=== PATIENT | female | born 1940 | race Caucasian/White ===

== ENCOUNTER → 2017-11-30 | Outpatient (CLI) | payer MEDICARE, BC ==
--- NOTE | 2017-11-30 20:27 | ECHOF ---
Referral Reason:R01.1 [facility] MEASUREMENTS -------- HEIGHT: 157.5 cm WEIGHT: 71.7 kg BP: 164/70 RVIDd: 2.6 cm (< 3.3) IVSd: 0.9 cm (0.6 - 1.1) LVIDd: 3.7 cm (3.9 - 5.3) LVPWd: 0.9 cm (0.6 - 1.1) IVSs: 1.3 cm LVIDs: 2.8 cm LVPWs: 1.4 cm LAESV Index (A-L): 27.60 ml/m Ao Diam: 3.5 cm (2.0 - 3.7) AV Cusp: 1.6 cm (1.5 - 2.6) LA Diam: 2.8 cm (2.7 - 3.8) MV EXCURSION: 13.970 mm (> 18.000) MV EF SLOPE: 99 mm/s (70 - 150) EPSS: 0.9 cm MV E Nino: 0.63 m/s MV DecT: 263 ms MV A Nino: 0.84 m/s MV E/A Ratio: 0.76 RAP: 5.00 mmHg RVSP: 8.72 mmHg FINDINGS -------- Sinus rhythm. This was a technically adequate study. The left ventricular size is normal. Left ventricular wall thickness is normal. Overall left vent ricular systolic function is normal with, an EF between 55 - 60 %. The right ventricle is normal in size and function. Normal LA size by volume 22+/-6 ml/m2. The right atrium is normal in size. There is mild aortic valve sclerosis. There is mild aortic regurgitation. Mild mitral annular calcification present. Mild mitral regurgitation is present. Mild tricuspid regurgitation present. Right ventricular systolic pressure is normal at < 35 mmHg. There is no evidence of pulmonary hypertension. Trace/mild (physiologic) pulmonic regurgitation. The aortic root size is normal. Normal inferior vena cava with normal inspiratory collapse consistent with estimated right atrial pre ssure of 5 mmHg. There is no pericardial effusion. CONCLUSIONS -------- 1. Sinus rhythm. 2. This was a technically adequate study. 3. The left ventricular size is normal. 4. Left ventricular wall thickness is normal. 5. Overall left ventricular systolic function is normal with, an EF between 55 - 60 %. 6. Normal LA size by volume 22+/-6 ml/m2. 7. There is mild aortic valve sclerosis. 8. There is mild aortic regurgitation. 9. Mild mitral annular calcification present. 10. Mild mitral regurgitation is present. 11. Mild tricuspid regurgitation present. 12. Right ventricular systolic pressure is normal at < 35 mmHg. 13. Trace/mild (physiologic) pulmonic regurgitation. 14. The aortic root size is normal. 15. There is no pericardial effusion. MANAGER RESOURCE: Speedy Leon RDCS
== END | disposition home or self-care (01) ==
LOC: RADECHMAIN 12:03
PROVIDERS: ATTEND Internal Medicine
DX: R01.1 Cardiac murmur, unspecified (principal)
CPT/HCPCS: 93306

== ENCOUNTER → 2019-09-03 | Outpatient (CLI) | payer MEDICARE, BC ==
--- NOTE | 2019-09-03 12:11 | XR ---
EXAM TYPE: LUMBAR SPINE X RAY SERIES COMPARISON: NONE HISTORY: Pain and numbness TECHNIQUE: 4 views are submitted. FINDINGS: Alignment is anatomic. The pedicles are intact. The transverse processes are intact. There is grad e 2 spondylolisthesis of L4 on L5. There is moderate to severe degenerative disc disease and facet ar thropathy at L4-5 and L5-S1. Diffuse osteopenia noted. Facet arthropathy L3-4 with mild degenerative disc disease at the remaining levels. Vascular calcific ations are noted in a chronic appearing superior endplate compression fracture of T12. Early for prev ious hernia repair surgery. IMPRESSION: 1. Multilevel moderate to severe degenerative disc disease with grade 2 anterolisthesis L5 on S1 like ly resulting in foraminal encroachment and canal stenosis. Recommend MRI. 2. Diffuse osteopenia with a chronic appearing compression fracture T12.
== END | disposition home or self-care (01) ==
LOC: RADXRYALE 11:05
PROVIDERS: ATTEND Internal Medicine
DX: M43.17 Spondylolisthesis, lumbosacral region (principal); M51.36 Other intervertebral disc degeneration, lumbar region; M85.88 Other specified disorders of bone density and structure, other site; S22.088A Other fracture of T11-T12 vertebra, initial encounter for closed fracture
CPT/HCPCS: 72110

== ENCOUNTER 2022-03-17 06:11 | Day surgery (SDC) | payer BC, MEDICARE ==
[2022-03-16 12:39] VITALS: BMI 25.6
[~2022-03-17 06:11] MED LIST: ALPRAZolam 0.25 MG TAB PO PRN; ALPRAZolam 0.5 MG TAB PO PRN; NITROGLYCERIN SL TABS 0.4 MG TAB SUBLINGUAL PRN; SODIUM CHLORIDE 0.9% 1,000 ML in EMPTY BAG 1 BAG IV ONE
[2022-03-17] MEDS ORDERED: SODIUM CHLORIDE 0.9% 1,000 ML IV ONE (06:41)
[2022-03-17] MEDS ORDERED: HEPARIN SODIUM,PORCINE 10,000 UNIT in SODIUM CHLORIDE 0.9% 1,000 ML IRRIGATION PRN (07:00)
[2022-03-17] MEDS ORDERED: ATORVASTATIN 80 MG TAB PO ONE (07:00)
[2022-03-17] MEDS ORDERED: HEPARIN SODIUM,PORCINE 2,500 UNIT in SODIUM CHLORIDE 0.9% 250 ML IRRIGATION PRN (07:00)
[2022-03-17] MEDS ORDERED: ASPIRIN 325 MG TAB PO ONE (07:00)
[2022-03-17 07:07] VITALS: RESP 16; TEMP 97.9
[2022-03-17] MEDS ORDERED: VERAPAMIL 2.5 MG/ML 2 ML AMP ONE (07:21)
[2022-03-17] MEDS ORDERED: fentaNYL (PF) 50 MCG/ML 2 ML AMP ONE (07:22)
[2022-03-17] MEDS ORDERED: fentaNYL (PF) 50 MCG/ML 2 ML AMP IV ONE (07:55)
[2022-03-17] MEDS ORDERED: LIDOCAINE 1% INJ 10MG/ML (5 ML VIAL-PF) IV ONE (08:03)
[2022-03-17] MEDS ORDERED: VERAPAMIL SYRINGE (5 MG/10 ML) INTRAARTER ONE (08:03)
[2022-03-17] MEDS ORDERED: HEPARIN SODIUM 1,000 UN/ML (10ML VL) IV ONE (08:07)
[2022-03-17] MEDS ORDERED: IOPAMIDOL-370 125ML BTL INJ ONE (08:13)
[2022-03-17] MEDS ORDERED: RX INFO: IV CONTRAST WAS GIVEN 1 EACH MISC MISCELLANE PRN (08:21)
--- NOTE | 2022-03-17 08:27 | P.CARDCATH ---
Date of Procedure: 03/17/22 Description of Procedure: Cardiac Catheterization: The patient is an 81-year-old female with a known history of hypertension and hyperlipidemia who has been complaining of chest discomfort and had an abnormal MPI. Recommendations were made regarding cardiac catheterization, the risks and the complications were discussed with the patient who is in full understanding and agreement. Procedure Description: Patient was brought to geoscience laboratory technician in fasting semi-sedated state after receiving Fentanyl and Benadryl achieiving moderate conscious sedated state. Using Xylocaine Anesthesia and Seldinger technique, a 6-[place] sheath was introduced in the right radial artery . Subsequently, selective coronary angiography was performed using a 5-[place] 3.5 bend right Gia and 4 bend left Gia catheter. Multiple views of the coronary artery including hemiaxial views were obtained. The right Gia catheter was used to cross the aortic valve and LVEDP was calculated. Following that, catheter and sheath were removed. Hemostasis was obtained with deployment of TR band . There was no immediate complication. Patient was returned to room in stable condition. Of note, the patient received a total of 3500 units of intravenous heparin as well as intra-arterial verapamil. Findings: Mild calcification was noted in the LAD Left main: This is a large size vessel, bifurcating into LAD and left circumflex, left main has no high-grade stenosis LAD: This is a large size vessel, reaching to the apex with a wraparound apex segment, the LAD has no evidence of significant obstructive disease Left circumflex: This is a large nondominant vessel giving rise to a large obtuse marginal branch, left circumflex and its branches have no obstructive disease RCA: This is a large dominant vessel bifurcating into PDA and PLV the right coronary artery and its branches have no evidence of high-grade stenosis Left Ventriculogram: Not performed Hemodynamics: There was no gradient across the aortic valve , LVEDP was 10-12 mmHg Conclusion: 1. Normal coronary arteries 2. Mild calcification in the LAD 3. Normal LVEDP 4. Right dominance Recommendations: I have recommended continued medical therapy with aggressive coronary risks modifications. I see no contraindication to her upcoming surgery with Dr. Rios. The findings and the recommendations were discussed with the patient and the family and they were in full understanding and agreement. Duration of sedation is 16 minutes.
[2022-03-17] MEDS ORDERED: SODIUM CHLORIDE 0.9% 1,000 ML IV SCH (08:30)
[2022-03-17] MEDS ORDERED: DULoxetine HCL 30 MG CAPSULE.DR PO SCH (09:00)
[2022-03-17] MEDS ORDERED: allopurinoL 100 MG TAB PO SCH (09:00)
[2022-03-17] MEDS ORDERED: atenoloL 25 MG TAB PO SCH (09:00)
[2022-03-17] MEDS ORDERED: amLODIPine 10 MG TAB PO SCH (09:00)
[2022-03-17 11:47] VITALS: PULSE 56
[2022-03-17 12:22] VITALS: BP 142/78
[2022-03-18] MEDS ORDERED: ASPIRIN 325 MG TAB PO SCH (09:00)
[2022-03-18] MEDS ORDERED: ATORVASTATIN 40 MG TAB PO SCH (21:00)
== END 2022-03-17 12:30 | disposition home or self-care (01) ==
LOC: CATHCVL 06:11
PROVIDERS: ATTEND Internal Medicine Interventional Cardiology
DX: R94.39 Abnormal result of other cardiovascular function study (principal); R07.89 Other chest pain; I10 Essential (primary) hypertension; E78.2 Mixed hyperlipidemia; I25.83 Coronary atherosclerosis due to lipid rich plaque
CPT/HCPCS: 93458; 87635; C1769 ×2; C1894; J2001; J3010; J1644; Q9967

== ENCOUNTER 2023-10-14 12:35 | Inpatient (IN) | payer MEDICARE ==
--- NOTE | 2023-10-14 13:52 | ED ---
Recheck HPI - General Chief Complaint: Fall Stated Complaint: Femar Fracture - Transfer Time Seen by Provider: 10/14/23 12:38 Source: patient, EMS, RN notes reviewed, old records reviewed Mode of arrival: EMS Limitations: no limitations - History of Present Illness Initial Comments: This is an 83-year-old female here for evaluation accepted in transfer for a fall. Fall with a hip fracture patient does have a right hip fracture after fall. Patient has significant pain still in the right hip MD Complaint: medication refill request, other (Patient having severe right hip pain after fall with fracture) -: hour(s) Returns Today for: persistent/worsening pain related to initial visit Symptoms Since Prior Visit: worsening pain Associated Symptoms: none Treatments Prior to Arrival: Given Pain Meds on - Related Data Home Medications Medication Instructions Recorded Confirmed atenoloL [Tenormin] 25 mg PO BID 07/03/15 10/14/23 Rosuvastatin [Crestor] 20 mg PO HS 03/16/22 10/14/23 Ergocalciferol (Vitamin D2) 1,250 mcg PO LEZAMA 10/14/23 10/14/23 [Drisdol (50,000 Iu)] Ferrous Sulfate [Iron (65 MG 325 mg PO DAILY 10/14/23 10/14/23 Elemental)] Mv-Mn/Om3/Dha/Epa/Fish/Lut/Phil 1 cap PO DAILY 10/14/23 10/14/23 [Ocuvite Adult 50 Plus Softgel] Previous Rx's Medication Instructions Recorded Apixaban [Eliquis] 2.5 mg PO BID 30 Days #60 tab 10/15/23 HYDROcodone/APAP 5-325MG [[place] 1 - 2 tab PO Q6HR PRN #32 tab 10/15/23 5-325] Sennosides [Senokot] 2 tab PO DAILY PRN #60 tablet 10/15/23 Allergies Allergy/AdvReac Type Severity Reaction Status Date / Time No Known Allergies Allergy Verified 10/14/23 13:20 Review of Systems ROS Statement: Those systems with pertinent positive or pertinent negative responses have been documented in the HPI. ROS Other: All systems not noted in ROS Statement are negative. Past Medical History Past Medical History: Cancer, CVA/TIA, Hyperlipidemia, Hypertension, Osteoarthritis (OA) Additional Past Medical History / Comment(s): hx TIA - some memory loss, hx colon cancer, "heart valve leakage", has episode of waking up with balance problem, did not know where she was and was SOB with chest discomfort, hx gout, History of Any Multi-Drug Resistant Organisms: None Reported Past Surgical History: Bowel Resection, Hernia Repair, Joint Replacement Additional Past Surgical History / Comment(s): lt knee replacement, Past Anesthesia/Blood Transfusion Reactions: No Reported Reaction Past Psychological History: No Psychological Hx Reported Smoking Status: Never smoker - Past Family History Mother Family Medical History: Cancer Brother(s) Family Medical History: Cancer Additional Family Medical History / Comment(s): stomach cancer General Exam Limitations: no limitations General appearance: alert, in no apparent distress Head exam: Present: atraumatic, normocephalic, normal inspection Eye exam: Present: normal appearance, PERRL, EOMI. Absent: scleral icterus, conjunctival injection, periorbital swelling ENT exam: Present: normal exam, mucous membranes moist Neck exam: Present: normal inspection. Absent: tenderness, meningismus, lymphadenopathy Respiratory exam: Present: normal lung sounds bilaterally. Absent: respiratory distress, wheezes, rales, rhonchi, stridor Cardiovascular Exam: Present: regular rate, normal rhythm, normal heart sounds. Absent: systolic murmur, diastolic murmur, rubs, gallop, clicks GI/Abdominal exam: Present: soft, normal bowel sounds. Absent: distended, tend erness, guarding, rebound, rigid Extremities exam: Present: normal inspection, full ROM, normal capillary refill. Absent: tenderness, pedal edema, joint swelling, calf tenderness Back exam: Present: normal inspection Neurological exam: Present: alert, oriented X3, CN II-XII intact Psychiatric exam: Present: normal affect, normal mood Skin exam: Present: warm, dry, intact, normal color. Absent: rash Course Vital Signs 10/14/23 10/14/23 10/14/23 12:37 12:41 13:41 Temperature 98 F 98 F Pulse Rate 77 80 96 Respiratory 17 17 18 Rate Blood Pressure 156/78 156/78 192/105 O2 Sat by Pulse 96 97 95 Oximetry 10/14/23 17:00 Temperature Pulse Rate 96 Respiratory 18 Rate Blood Pressure 167/83 O2 Sat by Pulse 98 Oximetry - Reevaluation(s) Reevaluation #1: 03/29/24 15:07 Records reviewed Reevaluation #2: 10/14/23 15:07 Patient pain is controlled Reevaluation #3: 10/14/23 15:07 Patient informed of results and questions answered Reevaluation #4: Was pt. sent in by a medical professional or institution (, [facility], [employer]AT [employer]ISHER, urgent care, hospital, or prison...) When possible be specific @ -no Did you speak to anyone other than the patient for history (EMS, parent, family, police, friend...)? What history was obtained from this source @ -no Did you review nursing and triage notes (agree or disagree)? Why? @ -agree Are old charts reviewed (outside hosp., previous admission, EMS record, old EKG, old radiological studies, urgent care reports/EKG's, prison records)? Report findings @ -yes Differential Diagnosis (chest pain, altered mental status, abdominal pain women, abdominal pain men, vaginal bleeding, weakness, fever, dyspnea, syncope, h eadache, dizziness, GI bleed, back pain, seizure, CVA, palpatations, mental health, musculoskeletal)? @ -prior EKG interpreted by me (3pts min.). @ -no X-rays interpreted by me (1pt min.). @ -yes negative for acute disease CT interpreted by me (1pt min.). @ -no U/S interpreted by me (1pt. min.). @ -no What testing was considered but not performed or refused? (CT, X-rays, U/S, labs)? Why? @ -none What meds were considered but not given or refused? Why? @ -none Did you discuss the management of the patient with other professionals (professionals i.e. , [facility], FLAT FINISHER, lab, RT, psych nurse, psychiatric social worker, armed security professional, teacher, global chief creative officer, nurse case manager)? Give summary @ -no Was smoking cessation discussed for >3mins.? @ -no Was critical care preformed (if so, how long)? @ -no Were there social determinants of health that impacted care today? How? (Homelessness, low income, unemployed, alcoholism, drug addiction, transportation, low edu. Level, literacy, decrease access to med. care, usp, rehab)? @ -none Was there de-escalation of care discussed even if they declined (Discuss DNR or withdrawal of care, Hospice)? DNR status @ -no What co-morbidities impacted this encounter? (DM, HTN, Smoking, COPD, CAD, Cancer, CVA, ARF, Chemo, Hep., AIDS, mental health diagnosis, sleep apnea, m orbid obesity)? @ -none Was patient admitted / discharged? Hospital course, mention meds given and route, prescriptions, significant lab abnormalities, going to OR and other pertinent info. @ - 83 female to the ER for evaluation status post fall does have prior hip fracture and today presents with right hip fracture right IT hip fracture. Patient will be admitted for surgical evaluation and orthopedics Admitted Undiagnosed new problem with uncertain prognosis? @ -no Drug Therapy requiring intensive monitoring for toxicity (Heparin, Nitro, Insulin, Cardizem)? @ -no Were any procedures done? @ -no Diagnosis/symptom? @ -Fall with hip fracture Acute, or Chronic, or Acute on Chronic? @ -Acute Uncomplicated (without systemic symptoms) or Complicated (systemic symptoms)? @ -Complicated Side effects of treatment? @ -no Exacerbation, Progression, or Severe Exacerbation? @ -exacerbation Poses a threat to life or bodily function? How? (Chest pain, [place], [place], pneumonia, PE, COPD, DKA, ARF, appy, cholecystitis, CVA, Diverticulitis, Homicidal, Suicidal, threat to staff... and all critical care pts) @ -yes significant fall and hip fracture - Consultations Consultation #1: With orthopedics prior to surgery Dr. Hanna who accepts admission Medical Decision Making - Medical Decision Making 83 female to the ER for evaluation status post fall does have prior hip fracture and today presents with right hip fracture right IT hip fracture. Patient will be admitted for surgical evaluation and orthopedics - Lab Data Result diagrams: 10/18/23 06:36 10/18/23 09:09 - Radiology Data Radiology results: report reviewed (X-ray right hip is positive for IT fracture), image reviewed Disposition Clinical Impression: Fall, Closed right hip fracture Disposition: ADMITTED IP TO THIS [facility] Condition: Fair Is patient prescribed a controlled substance at d/c from ED?: No Time of Disposition: 15:00
[2023-10-14] MEDS: SODIUM CHLORIDE 0.9% 1,000 ML IV STA (14:20)
[2023-10-14] MEDS: MORPHINE SULFATE 4 MG/ML SYRINGE IV STA (14:23)
--- NOTE | 2023-10-14 14:35 | XR ---
EXAMINATION TYPE: XR Hip Complete RT DATE OF EXAM: 10/14/2023 COMPARISON: NONE HISTORY: Pain TECHNIQUE: 2 views submitted FINDINGS: There is distortion of the femoral neck compatible with acute fracture. Vascular calcifications and d iffuse osteopenia. SI joint patent. Cross table lateral view demonstrates hip replacement surgery on the left. Vascular calcifications noted. Marker suggestive of previous hernia repair surgery. IMPRESSION: 1. Angulation deformity of the proximal right femur compatible with acute fracture. Most likely on th e basis of displaced intertrochanteric fracture.
[2023-10-14] MEDS ORDERED: NALOXONE 0.4 MG/ML 1 ML VIAL IV PRN (15:04)
[2023-10-14] MEDS ORDERED: ONDANSETRON 4 MG/2 ML VIAL IVP PRN (15:04)
[2023-10-14] MEDS: SODIUM CHLORIDE 0.9% 1,000 ML IV SCH (15:45)
[2023-10-14] MEDS: HYDROmorphone 1 MG/ML 1 ML SYRINGE IVP STA (15:45)
[2023-10-14 16:24] LABS: Basophils % (A) 0 %; Eosinophils % (A) 0 %; HCT 34.7 % (34.0-46.0); HGB 11.2 gm/dL (11.4-16.0); Lymphocytes # (A) 0.3 k/uL (1.0-4.8); Lymphocytes % (A) 3 %; MCH 28.1 pg (25.0-35.0); MCHC 32.3 g/dL (31.0-37.0); MCV 86.9 fL (80.0-100.0); Mean Platelet Volume 8.8; Monocytes # (A) 0.4 k/uL (0-1.0); Monocytes % (A) 4 %; Neutrophils # (A) 8.6 k/uL (1.3-7.7); Neutrophils % (A) 92 %; Platelet Count 203 k/uL (150-450); RBC 3.99 m/uL (3.80-5.40); RDW 14.2 % (11.5-15.5); WBC 9.4 k/uL (3.8-10.6)
[2023-10-14 16:35] LABS: INR 0.9 (<1.2); Partial Thromboplastin Time 24.3 sec (22.0-30.0); Prothrombin Time 10.1 sec (10.0-12.5)
[2023-10-14 16:36] LABS: ALT 37 U/L (4-34); AST 43 U/L (14-36); African American GFR (CKD) 62 (>60 ml/min/1.73 sqM); Albumin 3.4 g/dL (3.5-5.0); Alkaline Phosphatase 92 U/L (38-126); Anion Gap 9 mmol/L; Blood Urea Nitrogen 28 mg/dL (7-17); Calcium 8.6 mg/dL (8.4-10.2); Carbon Dioxide 23 mmol/L (22-30); Chloride 108 mmol/L (98-107); Glucose 112 mg/dL (74-99); Non-African American GFR(CKD) 54 (>60 ml/min/1.73 sqM); Potassium 4.2 mmol/L (3.5-5.1); Sodium 140 mmol/L (137-145); Total Bilirubin 1.5 mg/dL (0.2-1.3); Total Protein 6.4 g/dL (6.3-8.2)
[2023-10-14] MEDS: HYDROmorphone 1 MG/ML 1 ML SYRINGE IVP PRN (20:08)
[2023-10-14 22:35] LABS: Appearance,Urine Clear (Clear); Bilirubin,Urine Negative (Negative); Blood,Urine Negative (Negative); Color,Urine Colorless; Glucose,Urine (UA) Negative (Negative); Ketones,Urine Negative (Negative); Leukocyte Esterase,Urine Negative (Negative); Mucus,Urine Rare /hpf; Nitrite,Urine Negative (Negative); PH, Urine 5.5 (5.0-8.0); Protein,Urine 1+ (Negative); RBC,Urine <1 /hpf (0-5); Squamous Epithelial Cell,Urine <1 /hpf (0-4); Urobilinogen,Urine <2.0 mg/dL (<2.0); WBC,Urine 1 /hpf (0-5)
--- NOTE | 2023-10-14 23:58 | P.CONS ---
History of Present Illness - Reason for Consult Consult date: 10/14/23 - History of Present Illness Patient is a 83-year-old female with a PMH of hypertension and hyperlipidemia who was transferred from [facility] where the patient had presented earlier today after a fall at home. The history was obtained by the patient's son via phone (Akshat Garcia) as the patient was confused at the time of interview. He notes that the patient lives by herself and that they check in on her multiple times a day. They went in to her home as per usual this morning and found her on the ground, dressed to go to her appointment. The patient had reported to them that she was trying to reach for a lamp when she lost her balance and fell to the ground. The patient had severe pain at the right hip and was unable to bear weight. He reports that she otherwise is independent in most of her ADLs and has been doing well since her prior left-sided hip fracture in April 2023. She had not endorsed complaints of chest discomfort, shortness of breath, diaphoresis, or dizziness to her family members. At the time of interview, she was confused and stated that she fell but could not recall the circumstances and was not answering most questions appropriately. Right hip x-ray revealed proximal right femur angulation deformity with an acute fracture. Laboratory evaluation revealed a total bilirubin 1.5, AST 43, ALT 37, glucose 112, chloride 108, BUN 28, unremarkable UA. ED documentation reviewed and case discussed with ED provider. Review of systems: Pertinent positives and negatives as discussed in HPI, a complete review of systems was performed and all other systems are negative. Physical examination: Vital signs reviewed General: non toxic, no distress, appears at stated age, normal weight Derm: no unusual rashes/lesions, warm Head: atraumatic, normocephalic, symmetric Eyes: EOMI, no lid lag, anicteric sclera, pupils equal round reactive to light ENT: Nose and ears atraumatic Neck: No cervical lymphadenopathy, trachea midline, supple Mouth: no lip lesion, mucus membranes moist Cardiovascular: S1S2 reg, no murmur, positive dorsalis pedis pulse bilateral, no edema Lungs: CTA bilateral, no rhonchi, no rales, no accessory muscle use Abdominal: soft, nontender to palpation, no guarding Ext: muscle strength 5 out of 5 in all 4 extremities grossly except proximal right lower extremity due to pain, no gross muscle atrophy, no contractures, no right hip skin deformity noted Neuro: CN II-XI grossly intact, no gross focal neuro deficits Psych: Confused, oriented only to person, not oriented to time or place Assessment: Mechanical fall with right femoral fracture Chronic conditions: Hypothyroidism, hypertension Abnormal LFTs Imaging: Right hip x-ray revealed proximal right femur angulation deformity with an acute fracture. Data Review: Laboratory evaluation revealed a total bilirubin 1.5, AST 43, ALT 37, glucose 112, chloride 108, BUN 28, unremarkable UA. Plan: Preoperative evaluation Patient independent in most ADLs and ambulates without difficulty as per family. Limited chronic medical conditions. No reports of chest discomfort or shortness of breath. Patient is medium risk (in light of advanced age) and is currently optimized for orthopedic surgical procedure with no obvious modifiable risk factors noted. RCRI Score: 0 (3.9% 30-day risk of , VT, or cardiac arrest) Continue home medications Monitor LFTs Past Medical History Past Medical History: Cancer, CVA/TIA, Hyperlipidemia, Hypertension, Osteoarthritis (OA) Additional Past Medical History / Comment(s): hx TIA - some memory loss, hx colon cancer, "heart valve leakage", has episode of waking up with balance problem, did not know where she was and was SOB with chest discomfort, hx gout, History of Any Multi-Drug Resistant Organisms: None Reported Past Surgical History: Bowel Resection, Hernia Repair, Joint Replacement Additional Past Surgical History / Comment(s): lt knee replacement, lf hip fx 2022, Rt hip fx 2023 Past Anesthesia/Blood Transfusion Reactions: No Reported Reaction Past Psychological History: No Psychological Hx Reported Smoking Status: Never smoker Past Alcohol Use History: None Reported Past Drug Use History: None Reported - Past Family History Mother Family Medical History: Cancer Brother(s) Family Medical History: Cancer Additional Family Medical History / Comment(s): stomach cancer Medications and Allergies Home Medications Medication Instructions Recorded Confirmed Type RX: atenoloL [Tenormin] 25 mg PO BID 07/03/15 10/14/23 History RX: Rosuvastatin [Crestor] 20 mg PO HS 03/16/22 10/14/23 History RX: Aspirin 81 mg PO BID 30 Days #60 tab 04/25/23 10/14/23 Rx Ergocalciferol (Vitamin D2) 1,250 mcg PO LEZAMA 10/14/23 10/14/23 History [Drisdol (50,000 Iu)] Ferrous Sulfate [Feosol] 325 mg PO DAILY 10/14/23 10/14/23 History Mv-Mn/Om3/Dha/Epa/Fish/Lut/Phil 1 cap PO DAILY 10/14/23 10/14/23 History [Ocuvite Adult 50 Plus Softgel] Allergies Allergy/AdvReac Type Severity Reaction Status Date / Time No Known Allergies Allergy Verified 10/14/23 13:20 Physical Exam Vitals: Vital Signs Temp Pulse Pulse Resp BP BP Pulse Ox 10/14/23 19:37 99.2 F 82 16 169/83 94 L 10/14/23 17:00 96 18 167/83 98 10/14/23 13:41 96 18 192/105 95 10/14/23 12:41 98 F 80 17 156/78 97 10/14/23 12:37 98 F 77 17 156/78 96 Intake and Output 10/14/23 10/14/23 10/15/23 14:59 22:59 06:59 Output Total 900 Balance -900 Output: Urine 900 Other: Weight 63.503 kg 63.503 kg Results CBC & Chem 7: 10/14/23 16:16 10/14/23 16:16 Labs: Abnormal Lab Results - Last 24 Hours (Table) 10/14/23 10/14/23 10/14/23 Range/Units 16:16 16:16 22:19 Hgb 11.2 L (11.4-16.0) gm/dL Neutrophils # 8.6 H (1.3-7.7) k/uL Lymphocytes # 0.3 L (1.0-4.8) k/uL Chloride 108 H (98-107) mmol/L BUN 28 H (7-17) mg/dL Glucose 112 H (74-99) mg/dL Total Bilirubin 1.5 H (0.2-1.3) mg/dL AST 43 H (14-36) U/L ALT 37 H (4-34) U/L Albumin 3.4 L (3.5-5.0) g/dL Urine Protein 1+ H (Negative) Urine Mucus Rare H (None) /hpf
[2023-10-15] MEDS ORDERED: HYDROmorphone 0.5 MG/0.5 ML SYRINGE IVP PRN ×2 (07:27)
[2023-10-15] MEDS ORDERED: MAGNESIUM HYDROXIDE 2,400 MG/30 ML CUP PO PRN (07:27)
[2023-10-15] MEDS ORDERED: NALOXONE 0.4 MG/ML 1 ML VIAL IV PRN (07:27)
--- NOTE | 2023-10-15 07:27 | P.HPOR ---
History of Present Illness H&P Date: 10/15/23 This is an 83-year-old female who is admitted after a fall at home on 10/14/2023. Patient was seen and evaluated in the emergency room where x-rays revealed a right intertrochanteric femur fracture. Patient is seen and evaluated at bedside today and states that she was turning off the light in her bedroom when she lost her balance and fell. Patient states that she has a lot of pain in her right leg, but denies any other areas of pain. Patient states that she was admitted in April for a left hip fracture which was taken care of with a partial hip replacement. Patient states that she did well at [facility] bed and would hope to go there again after this surgery. Patient states that she did develop a blood clot after her last surgery and was on Eliquis for this. Patient states that she is no longer on blood thinners, but takes a baby aspirin daily. Patient's family is present at bedside today. Patient's past medical history significant for hyperlipidemia, hypertension, history of TIA and history of colon cancer. Patient denies any fever/chills, chest pain, shortness breath, abdominal pain, numbness, weakness or tingling. Review of Systems See HPI. Past Medical History Past Medical History: Cancer, CVA/TIA, Hyperlipidemia, Hypertension, Osteoarthritis (OA) Additional Past Medical History / Comment(s): hx TIA - some memory loss, hx colon cancer, "heart valve leakage", has episode of waking up with balance problem, did not know where she was and was SOB with chest discomfort, hx gout, History of Any Multi-Drug Resistant Organisms: None Reported Past Surgical History: Bowel Resection, Hernia Repair, Joint Replacement Additional Past Surgical History / Comment(s): lt knee replacement, lf hip fx 2022, Rt hip fx 2023 Past Anesthesia/Blood Transfusion Reactions: No Reported Reaction Past Psychological History: No Psychological Hx Reported Smoking Status: Never smoker Past Alcohol Use History: None Reported Past Drug Use History: None Reported - Past Family History Mother Family Medical History: Cancer Brother(s) Family Medical History: Cancer Additional Family Medical History / Comment(s): stomach cancer Medications and Allergies Home Medications Medication Instructions Recorded Confirmed Type atenoloL [Tenormin] 25 mg PO BID 07/03/15 10/14/23 History Rosuvastatin [Crestor] 20 mg PO HS 08/30/22 03/29/24 History Aspirin 81 mg PO BID 30 Days #60 tab 04/25/23 10/14/23 Rx Ergocalciferol (Vitamin D2) 1,250 mcg PO LEZAMA 10/14/23 10/14/23 History [Drisdol (50,000 Iu)] Ferrous Sulfate [Feosol] 325 mg PO DAILY 10/14/23 10/14/23 History Mv-Mn/Om3/Dha/Epa/Fish/Lut/Phil 1 cap PO DAILY 10/14/23 10/14/23 History [Ocuvite Adult 50 Plus Softgel] Allergies Allergy/AdvReac Type Severity Reaction Status Date / Time No Known Allergies Allergy Verified 10/14/23 13:20 Physical Examination On exam patient is resting comfortably in bed in no acute distress. Patient is alert and oriented 3. On exam of the right lower extremity there is shortening and external rotation. Exam is limited due to pain, but skin is intact. There is no erythema or obvious ecchymosis. Calf is soft and nontender to palpation. Sensation intact. Neurovascular status and circulatory status are intact. Exams of the left lower extremity, bilateral upper extremities, head and neck are within normal limits. Head is normocephalic and atraumatic. Results X-rays of the right hip dated 10/14/2023 reveal a displaced intertrochanteric femur fracture. - Labs Labs: Abnormal Lab Results - Last 24 Hours (Table) 10/14/23 10/14/23 10/14/23 Range/Units 16:16 16:16 22:19 Hgb 11.2 L (11.4-16.0) gm/dL Neutrophils # 8.6 H (1.3-7.7) k/uL Lymphocytes # 0.3 L (1.0-4.8) k/uL Chloride 108 H (98-107) mmol/L BUN 28 H (7-17) mg/dL Glucose 112 H (74-99) mg/dL Total Bilirubin 1.5 H (0.2-1.3) mg/dL AST 43 H (14-36) U/L ALT 37 H (4-34) U/L Albumin 3.4 L (3.5-5.0) g/dL Urine Protein 1+ H (Negative) Urine Mucus Rare H (None) /hpf H & H 10/14/23 Range/Units 16:16 Hgb 11.2 L (11.4-16.0) gm/dL Hct 34.7 (34.0-46.0) % Coagulation 10/14/23 Range/Units 16:16 INR 0.9 (<1.2) Result Diagrams: 10/14/23 16:16 10/14/23 16:16 Assessment and Plan (1) Fracture, intertrochanteric, right femur Current Visit: Yes Status: Acute Code(s): S72.141A - DISPLACED INTERTR OCHANTERIC FRACTURE OF RIGHT FEMUR, INIT SNOMED Code(s): 573559225 (2) Fall Current Visit: Yes Status: Acute Code(s): W19.XXXA - UNSPECIFIED FALL, INITIAL ENCOUNTER SNOMED Code(s): 7010114 Plan: 1. Patient is currently NPO. 2. Patient has been medically cleared for surgery. 3. Planning for right hip gamma nail later today with Dr. Hanna. 4. Patient will likely require inpatient rehab postoperatively and prefers [facility] bed.
[2023-10-15] MEDS ORDERED: fentaNYL (PF) 50 MCG/ML 2 ML AMP ONE (08:07)
[2023-10-15] MEDS ORDERED: PHENYLEPHRINE-0.9% NACL SYG 1,000 MCG/10 ML SYRINGE ONE (08:07)
[2023-10-15] MEDS: IV FLUID CONTINUATION 200 ML IV ONE (08:07)
[2023-10-15] MEDS ORDERED: PROPOFOL 10 MG/ML 20 ML VIAL IV ONE (08:07)
[2023-10-15] MEDS ORDERED: ceFAZolin 1 GM/50 ML BAG (PMX) ONE (08:07)
[2023-10-15] MEDS ORDERED: ePHEDrine 50 MG/ML 1 ML VIAL ONE (08:07)
[2023-10-15] MEDS ORDERED: TRANEXAMIC 1,000 MG/100ML-NACL PREMIX BAG ONE (08:07)
[2023-10-15] MEDS: LACTATED RINGERS 1,000 ML IV ONE (08:13)
[2023-10-15] MEDS: SODIUM CHLORIDE 0.9% 50 ML with ceFAZolin 2,000 MG IV ONE (08:13)
--- NOTE | 2023-10-15 09:43 | P.OP ---
Date of Procedure: 10/15/23 Preoperative Diagnosis: 1. Right comminuted peritrochanteric hip fracture 2. Prior left femoral neck fracture status post hemiarthroplasty 3. Osteoporosis with multiple prior fragility fractures Postoperative Diagnosis: Same Procedure(s) Performed: Operative fixation of right intertrochanteric hip fracture with short intramedullary hip screw Anesthesia: spinal Surgeon: Nixon Hanna Estimated Blood Loss (ml): 100 IV fluids (ml): 700 Pathology: none sent Condition: stable Disposition: PACU Indications for Procedure: I met with the patient and their family preoperatively to discuss their injury and treatment options. They have an extra-capsular, intertrochanteric hip fracture and my recommendation was to stabilize the fracture with an intramedullary hip screw to facilitate early mobilization. We discussed the potential risks and complications of this surgical procedure including but certainly not limited to risks from anesthesia, superficial infection, deep infection, fracture nonunion, fracture malunion, hardware failure including br oken hardware, varus collapse with lag screw cut out of the femoral head, progression of hip arthritis, limb length discrepancy, symptomatic hardware, need for further surgery including hardware removal and conversion to arthroplasty, DVT, PE, acute coronary event, pressure ulcers, urinary tract infection, failure to thrive, an inability to regain preinjury level of function, and possibly . The patient and their family understand these potential complications and also awknowledge that other less common complications are possible. They provided both their verbal and written consent to go forward with operative fixation of their hip fracture with an intramedullary hip screw. Description of Procedure: The patient was identified in preoperative holding and the correct operative extremity was marked with my initials. I reviewed the consent form with the patient and their family and all of their questions were answered. The patient was then brought back to the operating room by anesthesia. Anesthesia, preoperative antibiotics, and tranexamic acid were given by the anesthesia team while on the [facility]. Both ankles were padded with webril and boots for the [place] table were applied. The patient was then carefully transferred onto the [place] table. A perineal post was immediately placed. The contralateral arm was secured on a well-padded arm lorenzo. The ipsilateral arm was draped across the chest and secured with a pillow, foam, and paper tape to allow access to the proximal femur. Nonsterile drapes were applied to the operative extremity. The height of the table was elevated and the contralateral extremity was dropped towards the floor to facilitate imaging. A timeout was performed identifying the correct patient, operative extremity, and procedure. Fluoroscopy was brought in to assess the fracture. A provisional reduction was performed using longitudinal traction, adduction, and internal rotation. An AP and lateral view were obtained to assess the reduction. The operative extremity was then prepped and draped in the standard sterile fashion. A straight incision was made at the tip of the greater trochanter and extended proximally for 3 cm. Skin and subcutaneous tissues were incised sharply. The underlying fascia was incised in line with the skin incision. An awl was placed just medial to the tip of the greater trochanter on the AP view and colinear with the canal on the lateral view. A 3.2 mm guide pin was then advanced into the proximal femur. The position of the guidepin was verified with fluoroscopy. An opening reamer and soft tissue cannula were placed over the guidepin and used to open the proximal femur to the level of the lesser trochanter. The 3.2 mm guide pin and opening reamer were removed. A short gamma nail was dispensed, hooked up to the targeting arm and I verified that the trochar through the targeting arm lined up with the slots on the nail. The nail was then impacted into the proximal femur until the appropriate depth had been reached. A small stab incision was made over the lateral aspect of the femur using the targeting arm as a reference for the lag screw. Incision was carried down to the skin and fascia down to the lateral cortex of the femur. The trocar was then placed up to the lateral cortex of the femur and a guidepin was placed in the center position on the AP view and centered in the femoral head on the lateral view. Once the position of the guidewire was verified, we reamed to appropriate depth and placed a lag screw over the guidewire and into the femoral head. The position of the lag screw was assessed with fluoroscopy. The guidewire was then removed from the femoral head. The set screw was placed proximally, brought fully down and then released a quarter turn to allow compression. A final stab incision was made over the lateral femur at the site of the distal interlocking screw, again using the targeting arm as a reference. The trocar and sleeve were placed to the lateral cortex of the femur. We then drilled and placed a distal interlocking screw. Final fluoroscopic images were taken showing excellent reduction of the fracture and appropriate position of the implants. All wounds were thoroughly irrigated and closed in layers. Sterile dressings were applied. The drapes were taken down, the patient was transferred off the [place] table, and was brought to recovery having tolerated the procedure well. PLAN: The patient can weight-bear as tolerated on their operative extremity. 2 doses of postoperative antibiotics. DVT prophylaxis with Eliquis due to history of DVT after previous hip fracture. Dressing change on postoperative day #2. Appreciate Internal Medical assistance with perioperative medical management. Discharge planning in process.
--- NOTE | 2023-10-15 10:20 | XR ---
Fluoroscopy INDICATION: Pain FINDINGS: Fluoroscopy time: 1 minute 50 seconds. Total dose area product (DAP) in uGy*m?, mGy*cm? (or similar): 5.8 Images obtained: 3. IMPRESSION: 1. Documentation of fluoroscopy.
[2023-10-15] MEDS: atenoloL 25 MG TAB PO SCH (10:51)
[2023-10-15] MEDS: HYDROmorphone 0.5 MG/0.5 ML SYRINGE IVP PRN (11:17)
--- NOTE | 2023-10-15 12:22 | FL ---
Fluoroscopy INDICATION: Pain FINDINGS: Fluoroscopy time: 1 minute 50 seconds. Total dose area product (DAP) in uGy*m?, mGy*cm? (or similar): 5.8 Images obtained: 0. IMPRESSION: 1. Documentation of fluoroscopy.
[2023-10-15] MEDS: ONDANSETRON 4 MG/2 ML VIAL IVP PRN (14:10)
--- NOTE | 2023-10-15 15:06 | P.PN ---
Subjective Progress Note Date: 10/15/23 Subjective: Seen and examined at bedside. No acute events overnight. Status post surgery Pertinent positives and negatives as discussed above, a complete review of systems was performed and all other systems are negative. Vitals Signs Reviewed. General: Nontoxic, no distress, appears at stated age Derm: Warm, dry, dressing clean, dry, intact Head: Atraumatic, normocephalic, symmetric Eyes: EOMI, no lid lag, anicteric sclera Mouth: No lip lesion, mucus membranes moist Cardiovascular: S1S2 reg, no murmur Lungs: CTA bilateral, no rhonchi, no rales, no accessory muscle use Abdominal: Soft, nontender to palpation, no guarding, no appreciable organomegaly Ext: No gross muscle atrophy, no edema, no contractures Neuro: CN II-XI grossly intact, no focal neuro deficits Psych: Alert, oriented, appropriate affect Data Reviewed Today: Pertinent Labs: No new labs Imaging: No new imaging Assessment and Plan: Active: Mechanical fall with right femoral fracture, status postrepair Pain control with oral [place] as needed, IV Dilaudid as needed, monitor for sedation Senna 2 p.o. at night Okay to continue normal saline at 75 cc an hour Eliquis 2.5 twice daily for DVT prophylaxis Hypertensioncontinue atenolol 25 twice daily Dyslipidemiacontinue atorvastatin 40 daily Repeat CBC and BMP tomorrow Thank you for allowing us to participate in the care of this pleasant patient. Do not hesitate to contact us with questions. Someone can be reached from the [facility] [place] hospitalist group all hours of the day at [phone] or via perfect serve. Objective - Vital Signs Vital signs: Vital Signs Temp 98.8 F 10/15/23 09:24 Pulse 97 10/15/23 10:41 Resp 17 10/15/23 10:41 BP 137/63 10/15/23 10:24 Pulse Ox 97 10/15/23 10:24 FiO2 Intake & Output 10/14/23 10/15/23 10/15/23 18:59 06:59 18:59 Intake Total 600 Output Total 1000 750 Balance -1000 -150 Weight 63.503 kg 63.503 kg Intake: IV 600 Output: Urine 1000 650 Estimated Blood Loss 100 Other: Voiding Method Indwelling Catheter - Labs CBC & Chem 7: 10/14/23 16:16 10/14/23 16:16 Labs: Abnormal Lab Results - Last 24 Hours (Table) 10/14/23 10/14/23 10/14/23 Range/Units 16:16 16:16 22:19 Hgb 11.2 L (11.4-16.0) gm/dL Neutrophils # 8.6 H (1.3-7.7) k/uL Lymphocytes # 0.3 L (1.0-4.8) k/uL Chloride 108 H (98-107) mmol/L BUN 28 H (7-17) mg/dL Glucose 112 H (74-99) mg/dL Total Bilirubin 1.5 H (0.2-1.3) mg/dL AST 43 H (14-36) U/L ALT 37 H (4-34) U/L Albumin 3.4 L (3.5-5.0) g/dL Urine Protein 1+ H (Negative) Urine Mucus Rare H (None) /hpf
[2023-10-15] MEDS: SODIUM CHLORIDE 0.9% 1,000 ML IV SCH (16:03)
[2023-10-15] MEDS: HYDROcodone/APAP 5-325MG 1 EACH TAB PO PRN (18:06)
[2023-10-15] MEDS: SENNOSIDES-DOCUSATE SODIUM 1 EACH TAB PO SCH (22:10)
[2023-10-15] MEDS: ATORVASTATIN 40 MG TAB PO SCH (22:10)
[2023-10-16] MEDS: APIXABAN 2.5 MG TABLET PO SCH (08:04)
--- NOTE | 2023-10-16 08:53 | P.PN ---
Subjective Progress Note Date: 10/16/23 the patient is resting comfortably in her bed. She feels better this morning. She denies chest pain or shortness of breath. Objective - Vital Signs Vital signs: Vital Signs Temp 99.3 F 10/16/23 01:20 Pulse 73 10/16/23 01:20 Resp 18 10/16/23 01:20 BP 146/76 10/16/23 01:20 Pulse Ox 97 10/16/23 01:20 FiO2 Intake & Output 10/15/23 10/16/23 10/16/23 18:59 06:59 18:59 Intake Total 600 Output Total 960 375 Balance -360 -375 Intake: IV 600 Output: Urine 860 375 Stool 0 Estimated Blood Loss 100 Other: Voiding Method Indwelling Catheter Indwelling Catheter - Exam the patient is resting comfortably in her bed. She is alert and able to answer questions. Dressings over the lateral aspect of the right hip are intact with no drainage or strike through. Her thigh is soft and compressible. Femoral nerve function is intact. She is able to actively plantarflex and dorsiflex her ankle and her toes. - Labs CBC & Chem 7: 10/14/23 16:16 10/14/23 16:16 Assessment and Plan Assessment: postoperative day #1 status post right hip gamma nail Plan: 1. Weight bear as tolerated on the operative extremity, up with assistance and a walker, mobilize out of bed to chair 2. DVT prophylaxis with Eliquis given her prior DVT after her left hip fracture 3. 2 doses of post operative antibiotics 4. Leave surgical dressing in place 5. Internal medicine for lisbeth-operative medical management 6. Physical therapy for gait training and mobilization 7. Dispo: Discharge planning in progress, family would like [place] swing bed
[2023-10-16 09:34] LABS: Basophils # (A) 0.01 X 10*3/uL (0.00-0.10); Basophils % (A) 0.1 %; Eosinophils # (A) 0.07 X 10*3/uL (0.04-0.35); Eosinophils % (A) 0.9 %; HCT 28.6 % (37.2-46.3); HGB 8.8 g/dL (12.0-15.0); Lymphocytes # (A) 0.44 X 10*3/uL (0.90-5.00); Lymphocytes % (A) 5.8 %; MCH 27.8 pg (27.0-32.0); MCHC 30.8 g/dL (32.0-37.0); MCV 90.2 FL (80.0-97.0); Mean Platelet Volume 10.9 FL (9.5-12.2); Monocytes % (A) 7.9 %; NRBC Per 100 WBC 0 X 10*3/uL (0.00-0.01); Neutrophils # (A) 6.46 X 10*3/uL (1.80-7.70); Neutrophils % (A) 84.8 %; Platelet Count 163 X 10*3/uL (140-440); RBC 3.17 X 10*6/uL (4.10-5.20); RDW 14.5 % (11.5-14.5); WBC 7.62 X 10*3/uL (4.50-10.00)
[2023-10-16 10:03] LABS: Carbon Dioxide 23.4 mmol/L (21.6-31.8); Chloride 102 mmol/L (96-109); Glucose 96 mg/dL (70-110); Potassium 3.7 mmol/L (3.5-5.5); Sodium 135 mmol/L (135-145)
--- NOTE | 2023-10-16 12:50 | P.PN ---
Subjective Progress Note Date: 10/16/23 Subjective: Seen and examined at bedside. No acute events overnight. She has been alert delirious. Pertinent positives and negatives as discussed above, a complete review of systems was performed and all other systems are negative. Vitals Signs Reviewed. General: Nontoxic, no distress, appears at stated age Derm: Warm, dry dressing clean, dry, intact Head: Atraumatic, normocephalic, symmetric Eyes: EOMI, no lid lag, anicteric sclera Mouth: No lip lesion, mucus membranes moist Cardiovascular: S1S2 reg, no murmur Lungs: CTA bilateral, no rhonchi, no rales, no accessory muscle use Abdominal: Soft, nontender to palpation, no guarding, no appreciable organomegaly Ext: No gross muscle atrophy, no edema, no contractures Neuro: CN II-XI grossly intact, no focal neuro deficits Psych: Alert, oriented x 2, appropriate affect Data Reviewed Today: Pertinent Labs: WBC 7.62, hemoglobin 8.8, creatinine 0.8 Imaging: Assessment and Plan: Subjective: Seen and examined at bedside. No acute events overnight. Status post surgery Pertinent positives and negatives as discussed above, a complete review of systems was performed and all other systems are negative. Vitals Signs Reviewed. General: Nontoxic, no distress, appears at stated age Derm: Warm, dry, dressing clean, dry, intact Head: Atraumatic, normocephalic, symmetric Eyes: EOMI, no lid lag, anicteric sclera Mouth: No lip lesion, mucus membranes moist Cardiovascular: S1S2 reg, no murmur Lungs: CTA bilateral, no rhonchi, no rales, no accessory muscle use Abdominal: Soft, nontender to palpation, no guarding, no appreciable organomegaly Ext: No gross muscle atrophy, no edema, no contractures Neuro: CN II-XI grossly intact, no focal neuro deficits Psych: Alert, oriented, appropriate affect Data Reviewed Today: Pertinent Labs: No new labs Imaging: No new imaging Assessment and Plan: Active: Mechanical fall with right femoral fracture, status postrepair Acute blood loss anemia, anticipated outcome of surgery and recent fracture Postop delirium - Pain control with oral [place] as needed, IV Dilaudid as needed, monitor for sedation -Senna 2 p.o. at night -Okay to continue normal saline at 75 cc an hour -Eliquis 2.5 twice daily for DVT prophylaxis - Continue delirium precautions, avoid narcotics as much as possible - repeat CBC tomorrow Hypertension - continue atenolol 25 twice daily Dyslipidemia - continue atorvastatin 40 daily Thank you for allowing us to participate in the care of this pleasant patient. Do not hesitate to contact us with questions. Someone can be reached from the [facility] hospitalist group all hours of the day at [phone] or via perfect serve. Objective - Vital Signs Vital signs: Vital Signs Temp 98.9 F 10/16/23 06:55 Pulse 73 10/16/23 08:04 Resp 18 10/16/23 08:04 BP 145/68 10/16/23 06:55 Pulse Ox 96 10/16/23 06:55 FiO2 Intake & Output 10/15/23 10/16/23 10/16/23 18:59 06:59 18:59 Intake Total 600 Output Total 960 375 Balance -360 -375 Intake: IV 600 Output: Urine 860 375 Stool 0 Estimated Blood Loss 100 Other: Voiding Method Indwelling Catheter Indwelling Catheter Indwelling Catheter - Labs CBC & Chem 7: 10/16/23 05:03 10/16/23 05:03 Labs: Abnormal Lab Results - Last 24 Hours (Table) 10/16/23 10/16/23 Range/Units 05:03 05:03 RBC 3.17 L (4.10-5.20) X 10*6/uL Hgb 8.8 L (12.0-15.0) g/dL Hct 28.6 L (37.2-46.3) % MCHC 30.8 L (32.0-37.0) g/dL Lymphocytes # 0.44 L (0.90-5.00) X 10*3/uL Calcium 8.0 L (8.7-10.3) mg/dL
--- NOTE | 2023-10-17 07:45 | P.PN ---
Subjective Progress Note Date: 10/17/23 No acute events. Patient has no pain in her right hip. She states that she did not get up to a chair yesterday. Objective - Vital Signs Vital signs: Vital Signs Temp 99.9 F H 10/17/23 03:36 Pulse 72 10/17/23 03:36 Resp 20 10/17/23 03:36 BP 151/77 10/17/23 03:36 Pulse Ox 94 L 10/17/23 03:36 FiO2 Intake & Output 10/16/23 10/17/23 10/17/23 18:59 06:59 18:59 Intake Total 950 Output Total 500 Balance 450 Intake: Oral 950 Output: Urine 500 Other: Voiding Method Indwelling Catheter Indwelling Catheter - Exam Resting comfortably in bed. Alert and able to answer questions. Dressings over the right thigh or intact with minor dried strikethrough over the most distal dressing. Thigh and calf are soft. She is able to actively plantarflex and dorsiflex her ankle and her toes. - Labs CBC & Chem 7: 10/16/23 05:03 10/16/23 05:03 Labs: Abnormal Lab Results - Last 24 Hours (Table) 10/16/23 10/16/23 Range/Units 05:03 05:03 RBC 3.17 L (4.10-5.20) X 10*6/uL Hgb 8.8 L (12.0-15.0) g/dL Hct 28.6 L (37.2-46.3) % MCHC 30.8 L (32.0-37.0) g/dL Lymphocytes # 0.44 L (0.90-5.00) X 10*3/uL Calcium 8.0 L (8.7-10.3) mg/dL Assessment and Plan Assessment: Postoperative day 2 status post right hip gamma nail for intertrochanteric hip fracture Plan: Continue treatment as outlined. Attempt to mobilize out of bed to chair with therapy today. Discharge planning in progress.
[2023-10-17 11:55] LABS: Basophils # (A) 0.02 X 10*3/uL (0.00-0.10); Basophils % (A) 0.3 %; Eosinophils # (A) 0.11 X 10*3/uL (0.04-0.35); Eosinophils % (A) 1.6 %; HCT 27.1 % (37.2-46.3); HGB 8.6 g/dL (12.0-15.0); Lymphocytes # (A) 0.49 X 10*3/uL (0.90-5.00); MCH 28.4 pg (27.0-32.0); MCHC 31.7 g/dL (32.0-37.0); MCV 89.4 FL (80.0-97.0); Monocytes % (A) 8.5 %; NRBC Per 100 WBC 0 X 10*3/uL (0.00-0.01); Neutrophils # (A) 5.78 X 10*3/uL (1.80-7.70); Neutrophils % (A) 82.2 %; Platelet Count 145 X 10*3/uL (140-440); RBC 3.03 X 10*6/uL (4.10-5.20); RDW 14.4 % (11.5-14.5); WBC 7.03 X 10*3/uL (4.50-10.00)
--- NOTE | 2023-10-17 14:01 | P.PN ---
Subjective Progress Note Date: 10/17/23 Subjective: Seen and examined at bedside. No acute events overnight. Per family, this is her baseline mental status. Pertinent positives and negatives as discussed above, a complete review of systems was performed and all other systems are negative. Vitals Signs Reviewed. General: Nontoxic, no distress, appears at stated age Derm: Warm, dry dressing clean, dry, intact Head: Atraumatic, normocephalic, symmetric Eyes: EOMI, no lid lag, anicteric sclera Mouth: No lip lesion, mucus membranes moist Cardiovascular: S1S2 reg, no murmur Lungs: CTA bilateral, no rhonchi, no rales, no accessory muscle use Abdominal: Soft, nontender to palpation, no guarding, no appreciable organomegaly Ext: No gross muscle atrophy, no edema, no contractures Neuro: CN II-XI grossly intact, no focal neuro deficits Psych: Alert, oriented x 2, appropriate affect Data Reviewed Today: Pertinent Labs: WBC 7.03, hemoglobin 8.6 Imaging: No new imaging Assessment and Plan: Active: Mechanical fall with right femoral fracture, status postrepair Acute blood loss anemia, anticipated outcome of surgery and recent fracture Postop delirium - Pain control with oral [place] as needed, IV Dilaudid as needed, monitor for sedation -Senna 2 p.o. at night -Okay to continue normal saline at 75 cc an hour -Eliquis 2.5 twice daily for DVT prophylaxis - Continue delirium precautions, avoid narcotics as much as possible Hypertension - continue atenolol 25 twice daily Dyslipidemia - continue atorvastatin 40 daily Patient is medically optimized for discharge Thank you for allowing us to participate in the care of this pleasant patient. Do not hesitate to contact us with questions. Someone can be reached from the [facility] [place] [facility] hospitalist group all hours of the day at [phone] or via [employer]. Objective - Vital Signs Vital signs: Vital Signs Temp 99.1 F 10/17/23 07:12 Pulse 71 10/17/23 07:12 Resp 20 10/17/23 07:12 BP 149/65 10/17/23 07:12 Pulse Ox 94 L 10/17/23 07:12 FiO2 Intake & Output 10/16/23 10/17/23 10/17/23 18:59 06:59 18:59 Intake Total 950 Output Total 500 Balance 450 Intake: Oral 950 Output: Urine 500 Other: Voiding Method Indwelling Catheter Indwelling Catheter Indwelling Catheter - Labs CBC & Chem 7: 10/17/23 06:35 10/16/23 05:03 Labs: Abnormal Lab Results - Last 24 Hours (Table) 10/17/23 Range/Units 06:35 RBC 3.03 L (4.10-5.20) X 10*6/uL Hgb 8.6 L (12.0-15.0) g/dL Hct 27.1 L (37.2-46.3) % MCHC 31.7 L (32.0-37.0) g/dL Lymphocytes # 0.49 L (0.90-5.00) X 10*3/uL
[2023-10-18] MEDS: HYDROcodone/APAP 5-325MG 1 EACH TAB PO PRN (01:53)
[2023-10-18 08:03] VITALS: BP 161/78; PULSE 66; RESP 16; TEMP 98.7
[2023-10-18 09:59] LABS: ALT 33 U/L (4-34); AST 53 U/L (14-36); African American GFR (CKD) >90 (>60 ml/min/1.73 sqM); Albumin 2.8 g/dL (3.5-5.0); Alkaline Phosphatase 101 U/L (38-126); Anion Gap 8 mmol/L; Blood Urea Nitrogen 15 mg/dL (7-17); Calcium 8.6 mg/dL (8.4-10.2); Carbon Dioxide 21 mmol/L (22-30); Chloride 108 mmol/L (98-107); Globulin 2.9 g/dL; Glucose 97 mg/dL (74-99); Magnesium 1.7 mg/dL (1.6-2.3); Non-African American GFR(CKD) 81 (>60 ml/min/1.73 sqM); Potassium 3.8 mmol/L (3.5-5.1); Sodium 137 mmol/L (137-145); Total Bilirubin 1.6 mg/dL (0.2-1.3); Total Protein 5.7 g/dL (6.3-8.2)
[2023-10-18 11:01] LABS: Basophils # (A) 0.02 X 10*3/uL (0.00-0.10); Basophils % (A) 0.3 %; Eosinophils % (A) 1.6 %; HCT 26.3 % (37.2-46.3); HGB 8.6 g/dL (12.0-15.0); Lymphocytes # (A) 0.69 X 10*3/uL (0.90-5.00); Lymphocytes % (A) 11.1 %; MCH 28.6 pg (27.0-32.0); MCHC 32.7 g/dL (32.0-37.0); MCV 87.4 FL (80.0-97.0); Mean Platelet Volume 10.9 FL (9.5-12.2); Monocytes # (A) 0.56 X 10*3/uL (0.20-1.00); NRBC Per 100 WBC 0 X 10*3/uL (0.00-0.01); Neutrophils # (A) 4.79 X 10*3/uL (1.80-7.70); Neutrophils % (A) 76.9 %; Platelet Count 184 X 10*3/uL (140-440); RBC 3.01 X 10*6/uL (4.10-5.20); RDW 14.2 % (11.5-14.5); WBC 6.23 X 10*3/uL (4.50-10.00)
--- NOTE | 2023-10-18 11:37 | P.DS ---
Providers Date of admission: 10/14/23 15:06 Expected date of discharge: 10/18/23 Attending physician: Nixon Hanna Consults: 10/14/23 16:04 Consult Physician Stat Consulting Provider: Janice Hammer Consult Reason/Comments: preop clearance, hip fracture Do you want consulting provider notified?: Yes Primary care physician: Concepción Parnell - Discharge Diagnosis(es) (1) Status post hip surgery Current Visit: Yes Status: Acute (2) Closed right hip fracture Current Visit: Yes Status: Acute (3) Fall Current Visit: Yes Status: Acute Hospital Course: This is an 83 year old female who presented to the hospital post fall at home and sustained a right hip fracture. The patient was cleared by medicine for surgery. The patient underwent a right hip IT nail on 10/15/2023. The procedure was performed without complication or sequelae. The patient is doing well postoperatively. Labs and vital signs are stable on the day of discharge. On the day of discharge the patient's hip incisions are healing well. There is minimal erythema. There is no drainage noted at this time. There is minimal soft tissue swelling to the hip and thigh. The patient has full foot and ankle motion without difficulty or pain. Neurovascular status to the right lower extremity is intact. The patient is discharged to skilled rehab in good condition. Pertinent Studies: Laboratory Tests 10/18/23 10/18/23 06:36 09:09 WBC 6.23 RBC 3.01 L Hgb 8.6 L Hct 26.3 L Chloride 108 H Carbon Dioxide 21 L Patient Condition at Discharge: Fair Plan - Discharge Summary Discharge Rx Participant: No New Discharge Prescriptions: New Apixaban [Eliquis] 2.5 mg PO BID 30 Days #60 tab HYDROcodone/APAP 5-325MG [[place] 5-325] 1 - 2 tab PO Q6HR PRN #32 tab PRN Reason: Pain Sennosides [Senokot] 2 tab PO DAILY PRN #60 tablet PRN Reason: Constipation Continue atenoloL [Tenormin] 25 mg PO BID Mv-Mn/Om3/Dha/Epa/Fish/Lut/Phil [Ocuvite Adult 50 Plus Softgel] 1 cap PO DAILY Ergocalciferol (Vitamin D2) [Drisdol (50,000 Iu)] 1,250 mcg PO LEZAMA Rosuvastatin [Crestor] 20 mg PO HS Ferrous Sulfate [Iron (65 MG Elemental)] 325 mg PO DAILY Discontinued Aspirin 81 mg PO BID 30 Days #60 tab Discharge Medication List atenoloL [Tenormin] 25 mg PO BID 07/03/15 [History] Rosuvastatin [Crestor] 20 mg PO HS 03/16/22 [History] Ergocalciferol (Vitamin D2) [Drisdol (50,000 Iu)] 1,250 mcg PO LEZAMA 10/14/23 [History] Ferrous Sulfate [Iron (65 MG Elemental)] 325 mg PO DAILY 10/14/23 [History] Mv-Mn/Om3/Dha/Epa/Fish/Lut/Phil [Ocuvite Adult 50 Plus Softgel] 1 cap PO DAILY 10/14/23 [History] Apixaban [Eliquis] 2.5 mg PO BID 30 Days #60 tab 10/15/23 [Rx] HYDROcodone/APAP 5-325MG [[place] 5-325] 1 - 2 tab PO Q6HR PRN #32 tab 10/15/23 [Rx] Sennosides [Senokot] 2 tab PO DAILY PRN #60 tablet 10/15/23 [Rx] Follow up Appointment(s)/Referral(s): Concepción Parnell MD [Primary Care Provider] - 1-2 days Nixon Hanna MD [Medical Doctor] - 2 Weeks Activity/Diet/Wound Care/Special Instructions: Weightbearing as tolerated with walker. Leave dressing intact. Dressing may be removed by home care nurse or by patient in 7 days. Then change dressing twice daily until follow up. May shower with initial dressing intact and after removal. If dressing become saturated, please remove. Please take Eliquis twice daily for 30 days to prevent blood clots. Recommend use of compression stockings daily until follow up to help prevent swelling and blood clots. May remove at night before sleeping. Please follow-up with [facility] in 2 weeks and call with any questions or concerns, . Discharge Disposition: TRANSFER TO SNF/ECF
--- NOTE | 2023-10-18 14:03 | P.PN ---
Subjective Progress Note Date: 10/18/23 Hospital course: Patient is a very pleasant 83-year-old female with a past medical history of hypertension, hyperlipidemia, and iron deficiency anemia. She presented to the emergency department from [facility] on 10/14/2023 for evaluation of status post fall resulting in proximal right femur angulation deformity with an acute fracture. She was admitted under orthopedic surgery team and we were consulted for medical management throughout hospitalization. Patient was taken to the OR on 10/15/2023 and underwent open fixation of right intertrochanteric hip fracture with short intramedullary hip screw placement. Surgical procedure was completed by Dr. Hanna. . Physical exam: Patient is postoperative day 3. Vital signs reviewed and stable. General: Nontoxic, no distress and appears stated age. Derm: Skin warm and dry, normal coloration for ethnicity. Head: Atraumatic, normocephalic and symmetric. Eyes: EOMs intact, no lid lag, and anicteric sclera Mouth: no lip lesions, mucus membranes moist Cardiovascular: regular rate and rhythm with normal S1S2, no murmur, positive posterior tibial pulses bilaterally, and cap refill < 2 seconds. Lungs: Respirations even, regular, and unlabored on room air. Lungs CTA bilaterally, no rhonchi, no rales, no wheezing, and no accessory muscle usage. Abdominal: soft, nontender to palpation, no guarding, no appreciable organomegaly Ext: ROM intact. No gross muscle atrophy, no edema, no contractures Neuro: Speech clear, face symmetrical and CN II-XII grossly intact with no noted focal neuro deficits Psych: Alert and oriented to person, place, time, and situation. Appropriate and pleasant affect. Assessment and Plan of Care: Mechanical fall with right femoral fracture, status postrepair -Management per primary admitting orthopedic surgery team including DVT prophylaxis, pain management, wound care, weightbearing, and PT/OT. -Currently DVT prophylaxis with Eliquis. Acute postoperative blood loss anemia, -Stable and anticipated outcome of surgery and recent fracture. -Hemoglobin stable at 8.6. No need for transfusion or further intervention at this time. Postoperative urinary retention. -Guzman catheter was removed and patient underwent a voiding trial, she was unsuccessfully able to urinate resulting in continued urinary retention with need to reinsert Guzman catheter. RN reports greater than 700 cc urinary retention. -Patient may be discharged to SNF with Guzman catheter in place, recommend ou tpatient follow-up with urology for further voiding challenge. Postop delirium, improved - Pain control with oral [place] as needed, IV Dilaudid as needed, monitor for sedation -Senna 2 p.o. at night -Eliquis 2.5 twice daily for DVT prophylaxis - Continue delirium precautions, avoid narcotics as much as possible Hypertension -Monitor vital signs and continue atenolol 25 mg twice daily Dyslipidemia -Continue atorvastatin 40 mg daily Patient is medically optimized for discharge with no further recommendations, may be discharged to SNF with Guzman catheter in place once cleared by primary admitting orthopedic surgery team. Patient will need to follow-up outpatient with urology for repeat voiding challenge secondary to continued postoperative urinary retention. Thank you for allowing us to participate in the care of this pleasant patient. Do not hesitate to contact us with questions. Someone can be reached from the [facility] hospitalist group all hours of the day at [phone] or via [employer] serve. Patient was seen independently by Nurse Pracitioner. This document was prepared using [employer] dictation software. Please allow for errors in wood crafter, while rare they do occur. Objective - Vital Signs Vital signs: Vital Signs Temp 98.7 F 10/18/23 06:57 Pulse 66 10/18/23 06:57 Resp 16 10/18/23 06:57 BP 161/78 10/18/23 06:57 Pulse Ox 95 10/18/23 06:57 FiO2 Intake & Output 10/17/23 10/18/23 10/18/23 18:59 06:59 18:59 Intake Total 120 Output Total 825 Balance 120 -825 Intake: Oral 120 Output: Urine 75 Uretheral (Guzman) 75 Post Void Residual 750 Other: Voiding Method Indwelling Catheter External Catheter # Voids 1 - Labs CBC & Chem 7: 10/18/23 06:36 10/18/23 09:09 Labs: Abnormal Lab Results - Last 24 Hours (Table) 10/17/23 Range/Units 06:35 RBC 3.03 L (4.10-5.20) X 10*6/uL Hgb 8.6 L (12.0-15.0) g/dL Hct 27.1 L (37.2-46.3) % MCHC 31.7 L (32.0-37.0) g/dL Lymphocytes # 0.49 L (0.90-5.00) X 10*3/uL
--- NOTE | 2023-10-20 08:44 | CDI ---
Documentation Clarification Form Date: 10/20/23 From: Chey Page Admit Date: 10/14/2023 03:06:00 PM Patient Name: Mindy Garcia Visit Number: [id number] Discharge Date: 10/18/2023 02:02:00 PM ATTENTION: The Clinical Documentation Specialists (CDI) and [facility] Coding Staff appreciate your assistance in clarifying documentation. Please respond to the clarification below the line at the bottom and electronically sign. The CDI & [facility] Coding staff will review the response and follow-up if needed. Please note: Queries are made part of the Legal Health Record. If you have any questions, please contact the author of this message via ITS. Dr. Nixon Hanna, A right femoral intertrochanteric fracture is documented in the H&P. Additional clarification regarding the etiology of the fracture is requested. History/Risk Factors: HTN, hypothyroidism, HLD, OA Clinical Indications: Patient fell and sustained a right femoral intertrochanteric fracture. X-Ray Results: There isdistortionof the femoral neck compatible with acutefracture. Vascular calcificationsand diffuseosteopenia. Procedure note doc: Osteoporosiswith multiple priorfragilityfractures Treatment: Operativefixationofright intertrochanteric hip fracturewith short intramedullary hip screw Please clarify the etiology of the fracture, if known: [ ] Traumatic [ ] Osteoporosis [ ] Other (please specify): [ ] Unable to determine both traumatic and osteoporosis. WB MTDD
--- NOTE | 2023-10-20 10:56 | CDI ---
Date: 10/20/2023 From: Tessy Adorno Phone: [phone] Admit Date: 10/14/2023 03:06:00 PM Patient Name: Mindy Garcia Visit Number: [id number] Discharge Date: 10/18/2023 02:02:00 PM ATTENTION: The Clinical Documentation Specialists (CDI) and [facility] Coding Staff appreciate your assistance in clarifying documentation. Please respond to the clarification below the line at the bottom and electronically sign. The CDI & [facility] Coding staff will review the response and follow-up if needed. Please note: Queries are made part of the Legal Health Record. If you have any questions, please contact the author of this message via ITS. Dr. Nixon Hanna: Post-operative urinary retention is documented in the IM progress note 10/17 and patient had ORIF of right intertrochanteric hip fracture with short IM screw on 10/14. Additional clarification is requested regarding the relationship, if any, that exists between the diagnosis and the procedure. 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 RN report greater that 700 cc urinary retention, -Patient may be discharged to SNF with Guzman catheter in place, recommend outpatient follow-up with urology for further voiding challenge." 10/17 Discharge Summary: "The procedure was performed without complication or sequelae. The patient is doing well post operatively." Treatment: Void trial, Discharge with Guzman catheter What relationship, if any, exists between the diagnosis of post-operative urinary retention and the procedure: [ ] Urinary retention is a complication of surgical procedure [ ] Urinary retention is an expected outcome of the surgical procedure [ ] Urinary retention is related to spinal anesthesia & not a complication of the procedure [ ] Other please specify ____ [ ] Unable to determine I didn't manage urinary retention and can't answer this question. Please contact internal medicine for clarification. VILMA
--- NOTE | 2023-10-20 11:16 | CDI ---
Date: 10/20/2023 From: Tessy Adorno Phone: [phone] Admit Date: 10/14/2023 03:06:00 PM Patient Name: Mindy Garcia Visit Number: [id number] Discharge Date: 10/18/2023 02:02:00 PM ATTENTION: The Clinical Documentation Specialists (CDI) and [facility] Coding Staff appreciate your assistance in clarifying documentation. Please respond to the clarification below the line at the bottom and electronically sign. The CDI & [facility] Coding staff will review the response and follow-up if needed. Please note: Queries are made part of the Legal Health Record. If you have any questions, please contact the author of this message via ITS. Dr. Nixon Hanna: There is documentation of post-operative delirium in the IM progress note 10/15 and in subsequent IM progress notes. Additional clarification is requested. 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 The patient is doing well post operatively." Treatment: Hydromorphone 1mg IV [id number] prn pain given once 10/16 Hydrocodone 5/325mg oral [id number] once 10/16, 2tabs once 10/17 Normal Saline IV 65cc/hour 10/16 Can you please clarify the etiology of the Post-operative delirium? [ ] Toxic encephalopathy due to narcotic pain meds [ x ] Post-operative delirium [ ] Other, please specify [ ] Unable to determine MTDD
--- NOTE | 2023-11-01 07:00 | CDI ---
Date: 11/01/2023 10:56:00 AM From: Tessy Adorno Phone: [phone] Admit Date: 10/14/2023 03:06:00 PM Patient Name: Mindy Garcia Visit Number: [id number] Discharge Date: 10/18/2023 02:02:00 PM ATTENTION: The Clinical Documentation Specialists (CDI) and [facility] Coding Staff appreciate your assistance in clarifying documentation. Please respond to the clarification below the line at the bottom and electronically sign. The CDI & [facility] Coding staff will review the response and follow-up if needed. Please note: Queries are made part of the Legal Health Record. If you have any questions, please contact the author of this message via ITS. Dr. Mitch Wood Post-operative urinary retention is documented in the IM progress note 10/17 and patient had ORIF of right intertrochanteric hip fracture with short IM screw on 10/14. Additional clarification is requested regarding the relationship, if any, that exists between the diagnosis and the procedure. 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 RN report greater that 700 cc urinary retention, -Patient may be discharged to SNF with Guzman catheter in place, recommend outpatient follow-up with urology for further voiding challenge." 10/17 Discharge Summary: "The procedure was performed without complication or sequelae. The patient is doing well post operatively." Treatment: Void trial, Discharge with Guzman catheter What relationship, if any, exists between the diagnosis of post-operative urinary retention and the procedure: [ ] Urinary retention is a complication of surgical procedure [ ] Urinary retention is an expected outcome of the surgical procedure [ ] Urinary retention is related to spinal anesthesia & not a complication of the procedure [ ] Other please specify ____ [ x ] Unable to determine MTDD
== END 2023-10-18 14:02 | disposition swing bed (61) | DRG 481 ==
LOC: EC 12:35 → 4SSUR 15:06
PROVIDERS: ADMIT Orthopaedic Surgery; ATTEND Orthopaedic Surgery
PROC: 0QS636Z Reposition Right Upper Femur with Intramedullary Internal Fixation Device, Percutaneous Approach (ICD-10-PCS; principal; 2023-10-15 08:00)
DX: M80.851A Other osteoporosis with current pathological fracture, right femur, initial encounter for fracture (principal); D62 Acute posthemorrhagic anemia; F05 Delirium due to known physiological condition; S72.141A Displaced intertrochanteric fracture of right femur, initial encounter for closed fracture; R33.9 Retention of urine, unspecified; I10 Essential (primary) hypertension; E03.9 Hypothyroidism, unspecified; D50.9 Iron deficiency anemia, unspecified; E78.5 Hyperlipidemia, unspecified; M19.90 Unspecified osteoarthritis, unspecified site; R79.89 Other specified abnormal findings of blood chemistry; Z79.82 Long term (current) use of aspirin; Z79.899 Other long term (current) drug therapy; Z85.038 Personal history of other malignant neoplasm of large intestine; Z86.73 Personal history of transient ischemic attack (TIA), and cerebral infarction without residual deficits; Z87.81 Personal history of (healed) traumatic fracture; Z96.652 Presence of left artificial knee joint; Z96.642 Presence of left artificial hip joint; W01.0XXA Fall on same level from slipping, tripping and stumbling without subsequent striking against object, initial encounter; Y92.009 Unspecified place in unspecified non-institutional (private) residence as the place of occurrence of the external cause
CPT/HCPCS: 73502; 80048; 80053; 81001; 83735; 85025; 85610; 85730; 96361; 96374; 99285

== ENCOUNTER 2024-04-18 13:49 | Inpatient (IN) | payer MEDICARE ==
--- NOTE | 2024-04-18 15:19 | XR ---
EXAMINATION TYPE: XR femur RT DATE OF EXAM: 04/18/2024 3:00 PM CLINICAL INDICATION: Female, 83 years old with history of pain; [facility] COMPARISON: None TECHNIQUE: XR femur RT examined in Frontal and lateral projections. FINDINGS/IMPRESSION: Distal femoral diaphysis fracture with displacement and medial angulation. No evidence for periprosth etic fracture. The right hip and knee prostheses appear intact. There is up to 8.3 cm shortening. [facility], , 04/18/2024 3:17 PM
--- NOTE | 2024-04-18 15:21 | XR ---
EXAMINATION TYPE: XR pelvis AP view DATE OF EXAM: 04/18/2024 3:00 PM CLINICAL INDICATION: Female, 83 years old with history of pain; [facility] COMPARISON: 10/14/2023 TECHNIQUE: XR pelvis AP view, examined in a single projection. FINDINGS: Right hip fixation hardware in left hip arthroplasty appears intact. The pelvis appears int act. Abdominal anchor is noted. No evidence of fracture. IMPRESSION: Bilateral hips appear intact without evidence for fracture. [facility], , 04/18/2024 3:19 PM
[2024-04-18] MEDS ORDERED: NALOXONE 0.4 MG/ML 1 ML VIAL IV PRN (15:38)
[2024-04-18] MEDS ORDERED: SENNOSIDES 8.6 MG TAB PO PRN (15:40)
--- NOTE | 2024-04-18 15:47 | ED ---
Fall HPI - General Chief Complaint: Fall Stated Complaint: fall, R leg injury Time Seen by Provider: 04/18/24 13:55 Source: patient, EMS, RN notes reviewed, old records reviewed Mode of arrival: EMS Limitations: physical limitation - History of Present Illness Initial Comments: 83-year-old female presents emergency department via EMS from [facility] home after right leg injury. Patient was trying on some slippers with daughter when she lost her balance was her leg and she was lowered to the ground. Patient complains of right mid thigh pain. Patient had x-rays performed at [facility] home showing acute fracture. Patient's had bilateral hip surgery in the past by Dr. Hanna. Patient also states she has had a right total knee replacement by Dr. Rios prior to her hips. Patient denies any head injury no loss conscious. - Related Data Home Medications Medication Instructions Recorded Confirmed atenoloL [Tenormin] 25 mg PO BID 07/03/15 10/14/23 Rosuvastatin [Crestor] 20 mg PO HS 03/16/22 10/14/23 Ergocalciferol (Vitamin D2) 1,250 mcg PO LEZAMA 10/14/23 10/14/23 [Drisdol (50,000 Iu)] Ferrous Sulfate [Iron (65 MG 325 mg PO DAILY 10/14/23 10/14/23 Elemental)] Mv-Mn/Om3/Dha/Epa/Fish/Lut/Phil 1 cap PO DAILY 10/14/23 10/14/23 [Ocuvite Adult 50 Plus Softgel] Previous Rx's Medication Instructions Recorded Apixaban [Eliquis] 2.5 mg PO BID 30 Days #60 tab 10/15/23 HYDROcodone/APAP 5-325MG [[place] 1 - 2 tab PO Q6HR PRN #32 tab 10/15/23 5-325] Sennosides [Senokot] 2 tab PO DAILY PRN #60 tablet 10/15/23 Allergies Allergy/AdvReac Type Severity Reaction Status Date / Time No Known Allergies Allergy Verified 04/18/24 14:33 Review of Systems ROS Statement: Those systems with pertinent positive or pertinent negative responses have been documented in the HPI. ROS Other: All systems not noted in ROS Statement are negative. Past Medical History Past Medical History: Cancer, CVA/TIA, Hyperlipidemia, Hypertension, Ost eoarthritis (OA) Additional Past Medical History / Comment(s): hx TIA - some memory loss, hx colon cancer, "heart valve leakage", has episode of waking up with balance problem, did not know where she was and was SOB with chest discomfort, hx gout, History of Any Multi-Drug Resistant Organisms: None Reported Past Surgical History: Bowel Resection, Hernia Repair, Joint Replacement Additional Past Surgical History / Comment(s): lt knee replacement, Past Anesthesia/Blood Transfusion Reactions: No Reported Reaction Past Psychological History: No Psychological Hx Reported Smoking Status: Never smoker - Past Family History Mother Family Medical History: Cancer Brother(s) Family Medical History: Cancer Additional Family Medical History / Comment(s): stomach cancer General Exam Limitations: no limitations General appearance: alert, in no apparent distress Head exam: Present: atraumatic, normocephalic, normal inspection Respiratory exam: Present: normal lung sounds bilaterally. Absent: respiratory distress, wheezes, rales, rhonchi, stridor Cardiovascular Exam: Present: regular rate, normal rhythm, normal heart sounds. Absent: systolic murmur, diastolic murmur, rubs, gallop, clicks Extremities exam: Present: other (There is shortening to the right leg noted, pupils equal bilaterally there is some internal rotation and tenderness at the mid thigh with swelling noted) Course Vital Signs 04/18/24 14:27 Temperature 97.7 F Pulse Rate 70 Respiratory 16 Rate Blood Pressure 161/81 O2 Sat by Pulse 96 Oximetry Medical Decision Making - Medical Decision Making Was pt. sent in by a medical professional or institution (, PA, DERMATOLOGIST, urgent care, hospital, or intermediate...) When possible be specific @ -No Did you speak to anyone other than the patient for history (EMS, parent, family, police, friend...)? What history was obtained from this source @ -No Did you review nursing and triage notes (agree or disagree)? Why? @ -I reviewed and agree with nursing and triage notes Were old charts reviewed (outside hosp., previous admission, EMS record, old EKG, old radiological studies, urgent care reports/EKG's, intermediate records)? Report findings @ -Reviewed prior hip surgeries Differential Diagnosis (chest pain, altered mental status, abdominal pain women, abdominal pain men, vaginal bleeding, weakness, fever, dyspnea, syncope, headache, dizziness, GI bleed, back pain, seizure, CVA, palpatations, mental health, musculoskeletal)? @Right femur fracture right leg sprain EKG interpreted by me (3pts min.). @ -As above X-rays interpreted by me (1pt min.). @ -X-ray right femur, pelvis showing mid to distal femur fracture with shortening and angulation Chest x-ray 1 view no acute cardiopulmonary process CT interpreted by me (1pt min.). @ -None done U/S interpreted by me (1pt. min.). @ -None done What testing was considered but not performed or refused? (CT, X-rays, U/S, labs)? Why? @ -None What meds were considered but not given or refused? Why? @ -None Did you discuss the management of the patient with other professionals (professionals i.e. , PA, DERMATOLOGIST, lab, RT, psych nurse, director social service, sweetbread trimmer, teacher, occupational medicine officer, case packer)? Give summary @ -Amos Shin on-call for orthopedics who recommends patient be placed in Swift's traction, admitted to and medicine consult for surgical clearance Was smoking cessation discussed for >3mins.? @ -No Was critical care preformed (if so, how long)? @ -No Were there social determinants of health that impacted care today? How? (Homelessness, low income, unemployed, alcoholism, drug addiction, transportation, low edu. Level, literacy, decrease access to med. care, long term, rehab)? @ -No Was there de-escalation of care discussed even if they declined (Discuss DNR or withdrawal of care, Hospice)? DNR status @ -No What co-morbidities impacted this encounter? (DM, HTN, Smoking, COPD, CAD, Cancer, CVA, ARF, Chemo, Hep., AIDS, mental health diagnosis, sleep apnea, morbid obesity)? @ -None Was patient admitted / discharged? Hospital course, mention meds given and route, prescriptions, significant lab abnormalities, going to OR and other pertinent info. @ -Patient admitted to surgery with medicine consult for right femur fracture Undiagnosed new problem with uncertain prognosis? @ -No Drug Therapy requiring intensive monitoring for toxicity (Heparin, Nitro, Insulin, Cardizem)? @ -No Were any procedures done? @ -No Diagnosis/symptom? @ -Right femur fracture Acute, or Chronic, or Acute on Chronic? @ -Acute Uncomplicated (without systemic symptoms) or Complicated (systemic symptoms)? @ -Complicated Side effects of treatment? @ -No Exacerbation, Progression, or Severe Exacerbation? @ -No Poses a threat to life or bodily function? How? (Chest pain, [place], AR, pneumonia, PE, COPD, DKA, ARF, appy, cholecystitis, CVA, Diverticulitis, Homicidal, Suicidal, threat to staff... and all critical care pts) @ -No Disposition Clinical Impression: Right femoral fracture Disposition: ADMITTED IP TO THIS HOSP Condition: Fair Referrals: Wilfrido Raines MD [Primary Care Provider] - 1-2 days Time of Disposition: 15:46
[2024-04-18] MEDS: HYDROmorphone 0.5 MG/0.5 ML SYRINGE IVP PRN (16:04)
[2024-04-18 16:14] LABS: Basophils % (A) 0 %; Eosinophils % (A) 0 %; HGB 10.7 gm/dL (11.4-16.0); Hypochromasia Slight; Lymphocytes # (A) 0.7 k/uL (1.0-4.8); Lymphocytes % (A) 10 %; MCH 27.6 pg (25.0-35.0); MCHC 31.6 g/dL (31.0-37.0); MCV 87.3 fL (80.0-100.0); Mean Platelet Volume 8.9; Monocytes # (A) 0.3 k/uL (0-1.0); Monocytes % (A) 4 %; Neutrophils # (A) 5.9 k/uL (1.3-7.7); Neutrophils % (A) 84 %; Platelet Count 184 k/uL (150-450); RBC 3.89 m/uL (3.80-5.40); RDW 15.8 % (11.5-15.5)
--- NOTE | 2024-04-18 16:17 | XR ---
EXAMINATION TYPE: XR chest 1V DATE OF EXAM: 04/18/2024 3:00 PM CLINICAL INDICATION: Female, 83 years old with history of Pre OP; [facility] COMPARISON: Chest radiographs from 04/22/2023 TECHNIQUE: XR chest 1V Frontal view of the chest. FINDINGS: Lungs/Pleura: There is no evidence of pleural effusion, focal consolidation, or pneumothorax. Pulmonary vascularity: Unremarkable. Heart/mediastinum: Cardiomediastinal silhouette is unremarkable. Musculoskeletal: No acute osseous pathology. IMPRESSION: No acute cardiopulmonary disease/process. [facility] Michele Orourke, , 04/18/2024 4:15 PM
[2024-04-18 16:26] LABS: ALT 10 U/L (4-34); AST 19 U/L (14-36); African American GFR (CKD) 62 (>60 ml/min/1.73 sqM); Albumin 3.8 g/dL (3.5-5.0); Alkaline Phosphatase 79 U/L (38-126); Anion Gap 5 mmol/L; Blood Urea Nitrogen 34 mg/dL (7-17); Calcium 9.2 mg/dL (8.4-10.2); Carbon Dioxide 25 mmol/L (22-30); Chloride 109 mmol/L (98-107); Glucose 139 mg/dL (74-99); Non-African American GFR(CKD) 54 (>60 ml/min/1.73 sqM); Potassium 4.2 mmol/L (3.5-5.1); Sodium 139 mmol/L (137-145); Total Bilirubin 0.9 mg/dL (0.2-1.3); Total Protein 6.8 g/dL (6.3-8.2)
[2024-04-18 16:34] LABS: Partial Thromboplastin Time 25.1 sec (22.0-30.0); Prothrombin Time 10.6 sec (10.0-12.5)
[2024-04-18 18:28] LABS: Appearance,Urine Clear (Clear); Bacteria,Urine Rare /hpf; Bilirubin,Urine Negative (Negative); Blood,Urine Negative (Negative); Color,Urine Colorless; Glucose,Urine (UA) Negative (Negative); Ketones,Urine Negative (Negative); Leukocyte Esterase,Urine Trace (Negative); Mucus,Urine Rare /hpf; Nitrite,Urine Negative (Negative); Protein,Urine 1+ (Negative); RBC,Urine 1 /hpf (0-5); Specific Gravity,Urine 1.014 (1.001-1.035); Urobilinogen,Urine <2.0 mg/dL (<2.0); WBC,Urine 12 /hpf (0-5)
--- NOTE | 2024-04-18 20:47 | P.CONS ---
History of Present Illness - Reason for Consult Consult date: 04/18/24 Medical management Requesting physician: Nixon Hanna - Chief Complaint Fall - History of Present Illness This is a pleasantly confused 83-year-old patient, follows with visiting physician Dr. Raines. Chronic stable medical conditions include hyperlipidemia, hypertension, osteoarthritis, severe cognitive impairment, history of colon cancer gout bowel resection. Patient herself not able to give any significant history. She arrived to the ER via EMS from [facility] home. She was trying on slippers with her daughter lost her balance and she was lowered to the ground. Complaint of right mid thigh pain. Fracture was confirmed. She has had bilateral hip smith rgeries in the past by Dr. Hanna. And a right total knee replacement by Dr. Rios. Patient did not have any head injury or loss of consciousness. Review of systems clearly cannot be obtained because patient is pleasantly confused Social history: Lives at [facility] home. No history of smoking or alcohol reported. Physical examination: VITAL SIGNS: 97.7, 67, 16, 156 pulse 93, 97% room air GENERAL: BMI 20.2, laying bed awake not in distress. EYES: Pupils equal. Conjunctiva dionisio l. HEENT: External appearance of nose and ears normal, oral cavity grossly normal. NECK: JVD not raised; masses not palpable. HEART: First and second heart sounds are normal; no edema. LUNGS: Respiratory rate normal; clear to auscultation. ABDOMEN: Soft, nontender, liver spleen not palpable, no masses palpable. PSYCH: Patient can just about tell her name. Does not know where she is or why she is here. He keeps drifting off with answers l. MUSCULOSKELETAL:No Clubbing/cyanosis;muscles-grossly intact. OA. Right lower extremity is internally rotated flexed at the knee NEUROLOGICAL: Cranial nerves grossly intact; no facial asymmetry, power and sensation grossly intact. LYMPHATICS: No lymph nodes palpable in the axilla and neck INVESTIGATIONS, reviewed in the clinical context: April 18, 2024: White count 7 hemoglobin 10.7 platelets 184 sodium 139 potassium 4.2. 34 creatinine 0.96 UA: Protein 1+ trace leukoesterase EKG tracing personally reviewed by me-normal sinus rhythm. PVC. Nonspecific ST-T wave changes. Chest x-ray film personally reviewed by me-slight unfolding of the aorta. Possibly some chronic changes. Right femur x-ray: Distal femoral diaphysis fracture with displacement and medial angulation. No periprosthetic fracture. Assessment plan: -: Distal femoral diaphysis fracture with displacement and medial angulation. Patient scheduled for surgery by Dr. Hanna tomorrow -Severe cognitive impairment from late onset Alzheimer's dementia -Essential hypertension Tenormin 25 mg a day -Hyperlipidemia Crestor 20 mg nightly -Chronic insomnia from medical issues Melatonin -It is unclear for what reason patient is on Eliquis -Full code Perioperative cardiovascular risk assessment: Patient is of advanced age. Somewhat frail. Has no active cardiac symptoms. S he is a high risk for perioperative complications. But has no absolute complication to proceed with surgery. Currently no family member around. Thank you Dr. Hanna Past Medical History Past Medical History: Cancer, CVA/TIA, Hyperlipidemia, Hypertension, Osteoarthritis (OA) Additional Past Medical History / Comment(s): hx TIA - some memory loss, hx colon cancer, "heart valve leakage", has episode of waking up with balance problem, did not know where she was and was SOB with chest discomfort, hx gout, History of Any Multi-Drug Resistant Organisms: None Reported Past Surgical History: Bowel Resection, Hernia Repair, Joint Replacement Additional Past Surgical History / Comment(s): lt knee replacement, Past Anesthesia/Blood Transfusion Reactions: No Reported Reaction Past Psychological History: No Psychological Hx Reported Smoking Status: Never smoker - Past Family History Mother Family Medical History: Cancer Brother(s) Family Medical History: Cancer Additional Family Medical History / Comment(s): stomach cancer Medications and Allergies Home Medications Medication Instructions Recorded Confirmed Type atenoloL [Tenormin] 25 mg PO DAILY@79907/03/15 04/18/24 History Rosuvastatin [Crestor] 20 mg PO HS@199903/16/22 04/18/24 History Ferrous Sulfate [Iron (65 MG 325 mg PO DAILY@79910/14/23 04/18/24 History Elemental)] Mv-Mn/Om3/Dha/Epa/Fish/Lut/Phil 1 cap PO DAILY@79910/14/23 04/18/24 History [Ocuvite Adult 50 Plus Softgel] ALPRAZolam [Xanax] 0.5 - 1 mg PO HS PRN 04/18/24 04/18/24 History Acetaminophen [Tylenol] 650 mg PO Q4-6H PRN 04/18/24 04/18/24 History Apixaban [Eliquis] 2.5 mg PO BID@799,199904/18/24 04/18/24 History Aspirin [Adult Low Dose Aspirin EC] 81 mg PO DAILY@0800 04/18/24 04/18/24 History Cyanocobalamin (Vitamin B-12) 1,000 mcg PO DAILY@0800 04/18/24 04/18/24 History [Vitamin B-12] Ipratropium [place] 0.06%Nasal 2 spray EA NOSTRIL 04/18/24 04/18/24 History [Atrovent Nasal 0.06%] TID@799,1399,1999 Melatonin 5 mg PO HS@199904/18/24 04/18/24 History Methenamine Hippurate [Hiprex] 1 gm PO BID@799,199904/18/24 04/18/24 History QUEtiapine [SEROquel] 25 mg PO HS@199904/18/24 04/18/24 History Allergies Allergy/AdvReac Type Severity Reaction Status Date / Time No Known Allergies Allergy Verified 04/18/24 16:07 Physical Exam Vitals: Vital Signs Temp Pulse Resp BP Pulse Ox 04/18/24 19:39 67 16 156/93 97 04/18/24 17:43 61 18 160/78 97 04/18/24 14:27 97.7 F 70 16 161/81 96 Intake and Output 04/18/24 04/18/24 04/18/24 06:59 14:59 22:59 Output Total 400 Balance -400 Output: Urine 400 Other: # Voids 1 Weight 51.71 kg Results CBC & Chem 7: 04/18/24 16:02 04/18/24 16:02 Labs: Abnormal Lab Results - Last 24 Hours (Table) 04/18/24 04/18/24 04/18/24 Range/Units 16:02 16:02 17:51 Hgb 10.7 L (11.4-16.0) gm/dL RDW 15.8 H (11.5-15.5) % Lymphocytes # 0.7 L (1.0-4.8) k/uL Chloride 109 H (98-107) mmol/L BUN 34 H (7-17) mg/dL Glucose 139 H (74-99) mg/dL Urine Protein 1+ H (Negative) Ur Leukocyte Esterase Trace H (Negative) Urine WBC 12 H (0-5) /hpf Urine Bacteria Rare H (None) /hpf Urine Mucus Rare H (None) /hpf
[2024-04-18] MEDS: atenoloL 25 MG TAB PO SCH (22:10)
[2024-04-18] MEDS: ATORVASTATIN 40 MG TAB PO SCH (22:11)
[2024-04-18] MEDS: ENOXAPARIN 40 MG/0.4 ML SYRINGE SQ SCH (22:11)
--- NOTE | 2024-04-19 08:26 | P.HPOR ---
History of Present Illness H&P Date: 04/19/24 Chief Complaint: right thigh pain status post ground level fall 04/18/2024 This is a confused 83-year-old female patient. Patient was examined at bedside this morning, and is not able to give a medical history or a history of how she fell on 04/18/2024. Per chart review: Follows with visiting physician Dr. Raines. Chronic medical conditions include hyperlipidemia, hypertension, osteoarthritis, severe cognitive impairment, history of colon cancer gout bowel resection. Past surgical history includes right short gamma nail by Dr. Hanna, left hip hemiarthroplasty by Dr. Hanna, right total knee replacement by Dr. Rios. She arrived to the ER via EMS from [facility] home. She was trying on slippers with her daughter and lost her balance and had a ground-level fall. Patient did not have any head injury or loss of consciousness. Complaint of right mid thigh pain. X-rays of the right femur showed Interprosthetic distal femoral diaphysis fracture with displacement and medial angulation. X-rays of the pelvis show right gamma nail, and left hip hemiarthroplasty, in tact, no periprosthetic fracture seen on these x-rays. Review of systems clearly cannot be obtained because patient is pleasantly confused. Review of Systems Review of systems cannot be obtained due to patient being confused. Past Medical History Past Medical History: Cancer, CVA/TIA, Hyperlipidemia, Hypertension, Osteoarthritis (OA) Additional Past Medical History / Comment(s): hx TIA - some memory loss, hx colon cancer, "heart valve leakage", has episode of waking up with balance problem, did not know where she was and was SOB with chest discomfort, hx gout, History of Any Multi-Drug Resistant Organisms: None Reported Past Surgical History: Bowel Resection, Hernia Repair, Joint Replacement Additional Past Surgical History / Comment(s): lt knee replacement, Past Anesthesia/Blood Transfusion Reactions: No Reported Reaction Past Psychological History: No Psychological Hx Reported Smoking Status: Never smoker Past Alcohol Use History: None Reported Past Drug Use History: None Reported - Past Family History Mother Family Medical History: Cancer Brother(s) Family Medical History: Cancer Additional Family Medical History / Comment(s): stomach cancer Medications and Allergies Home Medications Medication Instructions Recorded Confirmed Type atenoloL [Tenormin] 25 mg PO DAILY@0800 07/03/15 04/18/24 History Rosuvastatin [Crestor] 20 mg PO HS@199903/16/22 04/18/24 History Ferrous Sulfate [Iron (65 MG 325 mg PO DAILY@0800 10/14/23 04/18/24 History Elemental)] Mv-Mn/Om3/Dha/Epa/Fish/Lut/Phil 1 cap PO DAILY@0800 10/14/23 04/18/24 History [Ocuvite Adult 50 Plus Softgel] ALPRAZolam [Xanax] 0.5 - 1 mg PO HS PRN 04/18/24 04/18/24 History Acetaminophen [Tylenol] 650 mg PO Q4-6H PRN 04/18/24 04/18/24 History Apixaban [Eliquis] 2.5 mg PO BID@799,199904/18/24 04/18/24 History Aspirin [Adult Low Dose Aspirin EC] 81 mg PO DAILY@0800 04/18/24 04/18/24 History Cyanocobalamin (Vitamin B-12) 1,000 mcg PO DAILY@0804/18/24 04/18/24 History [Vitamin B-12] Ipratropium [place] 0.06%Nasal 2 spray EA NOSTRIL 04/18/24 04/18/24 History [Atrovent Nasal 0.06%] TID@0800,1399,1999 Melatonin 5 mg PO HS@199904/18/24 04/18/24 History Methenamine Hippurate [Hiprex] 1 gm PO BID@08,199904/18/24 04/18/24 History QUEtiapine [SEROquel] 25 mg PO HS@199904/18/24 04/18/24 History Allergies Allergy/AdvReac Type Severity Reaction Status Date / Time No Known Allergies Allergy Verified 04/18/24 16:07 Physical Examination Patient was evaluated at bedside this morning. Patient was resting in bed. Patient was awake, alert, but was not able to answer questions in a meaningful way. Upon focused exam of the right lower extremity, patient's right leg is internally rotated and shortened. Upon inspection there is no breaks in the sk in. Patient is tender to touch diffusely over the right thigh. Patient's femoral nerve function appears grossly intact in the right lower extremity. Patient is able to plantarflex and dorsiflex the right ankle and toes. Patient's right foot is pink, warm, with brisk capillary refill. Results - Labs Labs: Abnormal Lab Results - Last 24 Hours (Table) 04/18/24 04/18/24 04/18/24 Range/Units 16:02 16:02 17:51 Hgb 10.7 L (11.4-16.0) gm/dL RDW 15.8 H (11.5-15.5) % Lymphocytes # 0.7 L (1.0-4.8) k/uL Chloride 109 H (98-107) mmol/L BUN 34 H (7-17) mg/dL Glucose 139 H (74-99) mg/dL Urine Protein 1+ H (Negative) Ur Leukocyte Esterase Trace H (Negative) Urine WBC 12 H (0-5) /hpf Urine Bacteria Rare H (None) /hpf Urine Mucus Rare H (None) /hpf H & H 04/18/24 Range/Units 16:02 Hgb 10.7 L (11.4-16.0) gm/dL Hct 34.0 (34.0-46.0) % Coagulation 04/18/24 Range/Units 16:02 INR 1.0 (<1.2) Result Diagrams: 04/18/24 16:02 04/18/24 16:02 Assessment and Plan Assessment: - Interprosthetic distal femoral diaphysis fracture with displacement and medial angulation. Patient scheduled for surgery by Dr. Hanna this afternoon -Severe cognitive impairment from late onset Alzheimer's dementia Plan: - Interprosthetic distal femoral diaphysis fracture with displacement and medial angulation. Patient scheduled for ORIF surgery by Dr. Hanna this afternoon. Patient to remain NPO. Patient to remain in bed.
[2024-04-19] MEDS: NON FORMULARY DRUG (Methenamine Hippurate [Hiprex] 1 GM Tablet) PO SCH (08:35)
[2024-04-19] MEDS: VIT A,C & E-LUTEIN-MINERALS 1 EACH TAB PO SCH (08:35)
[2024-04-19] MEDS: CYANOCOBALAMIN 500 MCG TAB PO SCH (08:35)
[2024-04-19] MEDS: FERROUS SULFATE 325 MG TAB PO SCH (08:36)
[2024-04-19] MEDS: IV FLUID CONTINUATION 1,000 ML IV ONE (16:29)
[2024-04-19] MEDS: ONDANSETRON 4 MG/2 ML VIAL IVP PRN (16:57)
[2024-04-19] MEDS ORDERED: TRANEXAMIC 1,000 MG/100ML-NACL 1,000 MG in SALINE 1 100ML.BAG IVPB PRN (17:12)
[2024-04-19] MEDS ORDERED: SUCCINYLCHOLINE CHLORIDE 200 MG/10 ML VIAL IV ONE (17:35)
[2024-04-19] MEDS ORDERED: ROCURONIUM 10 MG/ML (5 ML VIAL) IV ONE (17:35)
[2024-04-19] MEDS ORDERED: ACETAMINOPHEN IV (For NPO) 1,000 MG/100 ML VIAL ONE (17:35)
[2024-04-19] MEDS ORDERED: PROPOFOL 10 MG/ML 20 ML VIAL IV ONE (17:35)
[2024-04-19] MEDS ORDERED: fentaNYL (PF) 50 MCG/ML 2 ML AMP ONE (17:35)
[2024-04-19] MEDS ORDERED: TRANEXAMIC 1,000 MG/100ML-NACL PREMIX BAG ONE (17:35)
[2024-04-19] MEDS ORDERED: KETOROLAC 15 MG/ML 1 ML VIAL ONE (17:35)
[2024-04-19] MEDS ORDERED: PHENYLEPHRINE 10 MG/ML VIAL ONE (17:35)
[2024-04-19] MEDS ORDERED: LIDOCAINE 1% INJ 10MG/ML (20 ML MDV) ONE (17:35)
[2024-04-19] MEDS: SODIUM CHLORIDE 0.9% 50 ML with ceFAZolin 2,000 MG IV ONE (17:39)
[2024-04-19] MEDS: LACTATED RINGERS 1,000 ML IV ONE (19:26)
--- NOTE | 2024-04-19 19:30 | P.PN ---
Progress Note - Text Progress Note Date: 04/19/24 - Chief Complaint Fall - History of Present Illness This is a pleasantly confused 83-year-old patient, follows with visiting physician Dr. Raines. Chronic stable medical conditions include hyperlipidemia, hypertension, osteoarthritis, severe cognitive impairment, history of colon cancer gout bowel resection. Patient herself not able to give any significant history. She arrived to the ER via EMS from [facility] home. She was trying on slippers with her daughter lost her balance and she was lowered to the ground. Complaint of right mid thigh pain. Fracture was confirmed. She has had bilateral hip surgeries in the past by Dr. Hanna. And a right total knee replacement by Dr. Rios. Patient did not have any head injury or loss of consciousness. April 19: Patient was seen by me this morning before surgery. Laying in bed. Comfortable. Denies any significant pain. Going down for surgery later today. Social history: Lives at [facility] home. No history of smoking or alcohol reported. Physical examination: VITAL SIGNS: 98.2, 67, 17, 164 x 64, 99% room air GENERAL: BMI 20.2, laying bed awake comfortable EYES: Pupils equal. Conjunctiva dionisio l. HEENT: External appearance of nose and ears normal, oral cavity grossly normal. NECK: JVD not raised; masses not palpable. HEART: First and second heart sounds are normal; no edema. LUNGS: Respiratory rate normal; clear to auscultation. ABDOMEN: Soft, nontender, liver spleen not palpable, no masses palpable. PSYCH: Patient can just about tell her name. Does not know where she is or why she is here. He keeps drifting off with answers l. MUSCULOSKELETAL:No Clubbing/cyanosis;muscles-grossly intact. OA. Right lower extremity is internally rotated flexed at the knee INVESTIGATIONS, reviewed in the clinical context: April 18, 2024: White count 7 hemoglobin 10.7 platelets 184 sodium 139 potassium 4.2. 34 creatinine 0.96 UA: Protein 1+ trace leukoesterase EKG tracing personally reviewed by me-normal sinus rhythm. PVC. Nonspecific ST-T wave changes. Chest x-ray film personally reviewed by me-slight unfolding of the aorta. Possibly some chronic changes. Right femur x-ray: Distal femoral diaphysis fracture with displacement and medial angulation. No periprosthetic fracture. Assessment plan: -: Distal femoral diaphysis fracture with displacement and medial angulation. Patient scheduled for surgery by Dr. Hanna later today -Severe cognitive impairment from late onset Alzheimer's dementia -Essential hypertension Tenormin 25 mg a day -Hyperlipidemia Crestor 20 mg nightly -Chronic insomnia from medical issues Melatonin -It is unclear for what reason patient is on Eliquis -Full code Perioperative cardiovascular risk assessment: Patient is of advanced age. Somewhat frail. Has no active cardiac symptoms. She is a high risk for perioperative complications. But has no absolute complication to proceed with surgery. Currently no family member around. Thank you Dr. Hanna Past Medical History Past Medical History: Cancer, CVA/TIA, Hyperlipidemia, Hypertension, Osteoarthritis (OA) Additional Past Medical History / Comment(s): hx TIA - some memory loss, hx colon cancer, "heart valve leakage", has episode of waking up with balance problem, did not know where she was and was SOB with chest discomfort, hx gout, History of Any Multi-Drug Resistant Organisms: None Reported Past Surgical History: Bowel Resection, Hernia Repair, Joint Replacement Additional Past Surgical History / Comment(s): lt knee replacement, Past Anesthesia/Blood Transfusion Reactions: No Reported Reaction Past Psychological History: No Psychological Hx Reported Smoking Status: Never smoker
[2024-04-19] MEDS ORDERED: ONDANSETRON 4 MG/2 ML VIAL IVP PRN (19:59)
[2024-04-19] MEDS ORDERED: HYDROmorphone 0.5 MG/0.5 ML SYRINGE IVP PRN ×2 (19:59)
[2024-04-19] MEDS ORDERED: NALOXONE 0.4 MG/ML 1 ML VIAL IV PRN (19:59)
[2024-04-19] MEDS ORDERED: MAGNESIUM HYDROXIDE 2,400 MG/30 ML CUP PO PRN (19:59)
[2024-04-19] MEDS ORDERED: HYDROcodone/APAP 10-325MG 1 EACH TAB PO PRN (19:59)
[2024-04-19] MEDS: IV FLUID CONTINUATION 300 ML IV ONE ×2 (20:27→21:07)
--- NOTE | 2024-04-19 20:38 | P.OP ---
Date of Procedure: 04/19/24 Preoperative Diagnosis: 1. Right interprosthetic femur fracture 2. Prior bilateral hip fractures 3. Alzheimer's dementia Postoperative Diagnosis: Same Procedure(s) Performed: Open reduction and internal fixation right interprosthetic femur fracture Anesthesia: ELIAS Surgeon: Nixon Hanna Frame Polisher #1: Chip Butts Frame Polisher #2: Brice Concepcion Estimated Blood Loss (ml): 300 IV fluids (ml): 1,500 Urine output (ml): 100 Pathology: none sent Condition: stable Disposition: PACU Indications for Procedure: The patient is a very pleasant 83-year-old female with a past medical history significant for advanced Alzheimer's dementia who recently has undergone bilateral hip fracture fixation who presented to our ER yesterday after sustaining a ground-level fall resulting in a displaced right interprosthetic femur fracture. She was admitted under my care and cleared for surgery by internal medicine. I met with the patient and her family to discuss treatment options. I recommended open reduction and internal fixation. We discussed potential risks and complications at length including but certainly not limited to risks from anesthesia, superficial or deep infection, damage to local blood vessels or nerves, nonunion, malunion, hardware failure, loss of reduction, symptomatic hardware, and inability to regain preinjury level of function, failure to thrive, DVT, PE, acute coronary event, stroke, and possibly loss of life or limb. The patient and her family have very realistic expectations. They provided both her verbal and written consent to go forward with surgery. Description of Procedure: She was identified in preoperative holding and the correct right leg was marked with my initials. I reviewed the consent form with the patient and her family. All their questions were answered. The patient was brought back to the operating room by anesthesia. She was positioned on the OR table where general anesthetic and preoperative antibiotics, and tranexamic acid were given. A bone foam ramp was placed under the right leg to facilitate imaging. The contralateral left leg was secured to the OR table with foam, a blue towel, and tape. The right arm was draped across the body with a pillow, foam, and tape to facilitate imaging and exposure. The left arm was carefully positioned at the side on a well lorenzo. Nonsterile drapes were applied over the right leg. Fluoroscopy was brought in to verify that biplanar imaging could be obtained. The patient's right leg was then prepped and draped in the standard sterile fashion. Prior to starting surgery timeout was performed identifying the correct patient, operative extremity, and procedure. I began by outlining a straight lateral incision to the distal femur starting at the hip and extending to the knee. Skin incision was made with a scalpel and dissection was carried down carefully through subcutaneous tissue to the IT band with electrocautery. The IT band was then incised incised longitudinally in line with the skin incision using electrocautery. I then elevated the vastus lateralis off the intermuscular septum down to the lateral femur. Bipolar electrocautery sealant was used to control the perforators. The fracture was easily identified. There was a large intercalary butterfly fragment and multiple small areas of comminution. The patient was found to have exceedingly poor bone quality. Due to the patient's poor bone quality and comminution was very difficult keying the fracture fragments into place. We were able to pull traction and get the femur out to length at which point we very carefully reduced the intercalary butterfly fragment proximally and distally. Both the proximal and distal portion of the intercalary fragment keyed in. The fracture was revisional he held with clamps and K wires. Fluoroscopy was used to verify reduction. 3 cables were then placed carefully across the fracture to provisionally hold the fracture site reduced. Due to the patient's poor bone quality some of the reduction was lost that the fracture still appeared to be relatively well reduced and out to length. We then placed a precontoured locking plate over the distal femur. The interlocking screw from the short intramedullary hip screw was removed. The position of the plate was verified with fluoroscopy. Nonlocking screws were placed proximally and distally to the plate after it had been contoured and bent to fit the patient's anatomy. Placement of the plate was verified with fluoroscopy. Locking screws were then placed proximally and distally. A fourth cable was placed at the most proximal aspect of the plate around the femur. Vital fluoroscopic images were taken. The wound was then thoroughly irrigated and closed in layers. I verified that all instrument, sponge, and sharp counts were correct. A dressing was applied. The drapes were taken down and a web roll and Himanshu wrap were applied followed by a knee immobilizer. The patient was then transferred to the recovery room having tolerated the procedure well. Chip Butts MD and Brice Jamey PAC required a skilled litigation legal assistant through the complexity of surgery for patient positioning, exposure, retraction, reduction of fracture, placement of implants, closure of wound, and application of dressing. Plan: The patient should remain strictly nonweightbearing on the right leg in a knee immobilizer. DVT prophylaxis, okay to resume Eliquis. Doses postoperative antibiotics, follow-up in the office in 2 weeks for nonweightbearing x-rays of the right femur.
--- NOTE | 2024-04-19 20:45 | XR ---
Right femur. HISTORY: Femur fracture. COMPARISON: 04/18/2024. TECHNIQUE: 12 spot films in 1 minute and 9 seconds of fluoroscopy were provided for open reduction in ternal fixation of a complex right femur fracture. Knees: Findings Open reduction internal fixation of a complex right femur fracture.. IMPRESSION: Open reduction internal fixation of a right femur fracture in near-anatomic alignment. [facility], Workstation: [facility] 04/19/2024 8:43 PM
[2024-04-19 22:14] LABS: Anisocytosis Slight; Basophils % (A) 0 %; Eosinophils % (A) 0 %; HCT 25.2 % (34.0-46.0); Lymphocytes # (A) 0.7 k/uL (1.0-4.8); Lymphocytes % (A) 8 %; MCH 28.4 pg (25.0-35.0); MCHC 32.5 g/dL (31.0-37.0); MCV 87.4 fL (80.0-100.0); Mean Platelet Volume 9.5; Monocytes # (A) 0.5 k/uL (0-1.0); Monocytes % (A) 6 %; Neutrophils # (A) 7.7 k/uL (1.3-7.7); Neutrophils % (A) 86 %; Platelet Count 140 k/uL (150-450); RBC 2.88 m/uL (3.80-5.40); RDW 16.3 % (11.5-15.5)
[2024-04-19 22:17] LABS: HGB 8.2 gm/dL (11.4-16.0)
[2024-04-19] MEDS: QUEtiapine 25 MG TAB PO SCH (22:18)
[2024-04-19] MEDS: MELATONIN 5 MG TABLET PO SCH (22:18)
[2024-04-19] MEDS: SENNOSIDES-DOCUSATE SODIUM 1 EACH TAB PO SCH (23:01)
--- NOTE | 2024-04-19 23:51 | FL ---
Right femur. HISTORY: Femur fracture. COMPARISON: 04/18/2024. TECHNIQUE: 12 spot films in 1 minute and 9 seconds of fluoroscopy were provided for open reduction internal fixation of a complex right femur fracture. Knees: Findings Open reduction internal fixation of a complex right femur fracture.. IMPRE SSION: Open reduction internal fixation of a right femur fracture in near- anatomic alignment. [facility], Workstation: [facility], 04/19/2024 8:43 PM [facility], , 04/19/2024 11:49 PM
[2024-04-20] MEDS: SODIUM CHLORIDE 0.9% 1,000 ML IV SCH (01:09)
[2024-04-20] MEDS: HYDROcodone/APAP 5-325MG 1 EACH TAB PO PRN (06:14)
[2024-04-20 06:37] LABS: Glucose,Whole Blood 124 mg/dL (70-110)
[2024-04-20] MEDS: ACETAMINOPHEN TAB 325 MG TAB PO PRN (12:53)
--- NOTE | 2024-04-20 13:38 | P.PN ---
Subjective Progress Note Date: 04/20/24 Principal diagnosis: 1. Right interprosthetic femur fracture s/p Open reduction and internal fixation right interprosthetic femur fracture Patient is postop day 1. Patient doing well overnight. Per nursing staff no acute events. Patient states at rest she has no pain. She has pain with moving her right leg. Patient was moved into a chair earlier today and did well. Objective - Vital Signs Vital signs: Vital Signs Temp 98.4 F 04/20/24 06:53 Pulse 79 04/20/24 06:53 Resp 17 04/20/24 06:53 BP 139/74 04/20/24 06:53 Pulse Ox 100 04/20/24 06:53 FiO2 Intake & Output 04/19/24 04/20/24 04/20/24 18:59 06:59 18:59 Intake Total 1050 550 Output Total 450 250 Balance 600 300 Intake: IV 1050 550 Output: Urine 150 250 Estimated Blood Loss 300 Other: Voiding Method Indwelling Catheter Indwelling Catheter Indwelling Catheter - Exam Patient was examined at bedside. Patient was awake alert, but is not oriented due to Alzheimer's dementia. On exam there is a right knee immobilizer in place. Patient's toes are visualized and are pink, with capillary refill under 2 seconds. Patient's right femoral nerve function is grossly intact. Patient is able to plantarflex and dorsiflex the right ankle and toes. - Labs CBC & Chem 7: 04/19/24 21:45 04/18/24 16:02 Labs: Abnormal Lab Results - Last 24 Hours (Table) 04/19/24 04/20/24 Range/Units 21:45 06:36 RBC 2.88 L (3.80-5.40) m/uL Hgb 8.2 L D (11.4-16.0) gm/dL Hct 25.2 L (34.0-46.0) % RDW 16.3 H (11.5-15.5) % Plt Count 140 L (150-450) k/uL Lymphocytes # 0.7 L (1.0-4.8) k/uL POC Glucose (mg/dL) 124 H (70-110) mg/dL Assessment and Plan Assessment: Postop day #1 1. Right interprosthetic femur fracture status post Open reduction and internal fixation right interprosthetic femur fracture 2. Prior bilateral hip fractures 3. Alzheimer's dementia Plan: Nonweightbearing of right lower extremity. May remove knee immobilizer while patient is sitting in chair. Continue to manage pain. Appreciate medicine for medical management. Dispo: Anticipate needing snf facility.
--- NOTE | 2024-04-20 17:18 | P.PN ---
Progress Note - Text Progress Note Date: 04/20/24 - Chief Complaint Fall - History of Present Illness This is a pleasantly confused 83-year-old patient, follows with visiting physician Dr. Raines. Chronic stable medical conditions include hyperlipidemia, hypertension, osteoarthritis, severe cognitive impairment, history of colon cancer gout bowel resection. Patient herself not able to give any significant history. She arrived to the ER via EMS from [facility] home. She was trying on slippers with her daughter lost her balance and she was lowered to the ground. Complaint of right mid thigh pain. Fracture was confirmed. She has had bilateral hip surgeries in the past by Dr. Hanna. And a right total knee replacement by Dr. Rios. Patient did not have any head injury or loss of consciousness. April 19: Patient was seen by me this morning before surgery. Laying in bed. Comfortable. Denies any significant pain. Going down for surgery later today. April 20: Patient had open reduction internal fixation of the femur yesterday. Rather sleepy today. Family at the bedside. Has not eaten this morning. Getting IV fluids. Did spike a fever of 101.9 this afternoon. Active Medications Acetaminophen (Acetaminophen Tab 325 Mg Tab) 650 mg PO Q6HR PRN PRN Reason: Mild Pain or Fever > 100.5 Last Admin: 04/20/24 12:53 Dose: 650 mg Hydrocodone Bitart/Acetaminophen (Hydrocodone/Apap 5-325mg 1 Each Tab) 1 each PO Q4HR PRN PRN Reason: Moderate Pain (Scale 4 to 6) Last Admin: 04/20/24 06:14 Dose: 1 each Hydrocodone Bitart/Acetaminophen (Hydrocodone/Apap 10-325mg 1 Each Tab) 1 each PO Q6H PRN PRN Reason: Pain Scale 7 to 10 Alprazolam (Alprazolam 0.5 Mg Tab) 0.5 mg PO HS PRN PRN Reason: ANXIETY/INSOMNIA Atenolol (Atenolol 25 Mg Tab) 25 mg PO BID [facility] Last Admin: 04/20/24 07:51 Dose: 25 mg Atorvastatin Calcium (Atorvastatin 40 Mg Tab) 40 mg PO HS [facility] Last Admin: 04/19/24 23:01 Dose: 40 mg Cyanocobalamin (Cyanocobalamin 500 Mcg Tab) 1,000 mcg PO DAILY@0800 [facility] Last Admin: 04/20/24 07:52 Dose: Not Given Enoxaparin Sodium (Enoxaparin 40 Mg/0.4 Ml Syringe) 40 mg SQ DAILY [facility] Last Admin: 04/20/24 07:51 Dose: 40 mg Ferrous Sulfate (Ferrous Sulfate 325 Mg Tab) 325 mg PO DAILY [facility] Last Admin: 04/20/24 07:51 Dose: Not Given Hydromorphone HCl (Hydromorphone 0.5 Mg/0.5 Ml Syringe) 0.125 mg IVP Q3HR PRN PRN Reason: Pain Scale 1 to 3 Hydromorphone HCl (Hydromorphone 0.5 Mg/0.5 Ml Syringe) 0.25 mg IVP Q3HR PRN PRN Reason: Pain Scale 4 to 6 Hydromorphone HCl (Hydromorphone 0.5 Mg/0.5 Ml Syringe) 0.5 mg IVP Q3HR PRN PRN Reason: Pain Scale 7 to 10 Hydroxyzine Pamoate (Hydroxyzine Pamoate 25 Mg Cap) 25 mg PO Q4HR PRN PRN Reason: Mild Nausea and/or Anxiety Tranexamic Acid/Sodium (Chloride 1,000 mg/ IV Solution) 100 mls @ 200 mls/hr IVPB Q2HR PRN; Protocol PRN Reason: Bleeding Stop: 04/20/24 23:00 Sodium Chloride (Saline 0.9%) 1,000 mls @ 100 mls/hr IV .Q10H [facility] Last Admin: 04/20/24 17:07 Dose: Not Given Magnesium Hydroxide (Magnesium Hydroxide 2,400 Mg/30 Ml Cup) 2,400 mg PO DAILY PRN PRN Reason: Constipation Melatonin (Melatonin 5 Mg Tablet) 5 mg PO HS@1999 [facility] Last Admin: 04/19/24 22:18 Dose: Not Given Multivitamins/Minerals (Vit A,C & J-Xlofgy-Tsfoeaso 1 Each Tab) 1 each PO DAILY@0800 [facility] Last Admin: 04/20/24 07:52 Dose: Not Given Naloxone HCl (Naloxone 0.4 Mg/Ml 1 Ml Vial) 0.2 mg IV Q2M PRN PRN Reason: Opioid Reversal Non-Formulary Medication (Methenamine Hippurate [Hiprex]) 1 gm PO BID@799,1999 [facility] Last Admin: 04/20/24 07:52 Dose: Not Given Ondansetron HCl (Ondansetron 4 Mg/2 Ml Vial) 4 mg IVP Q8HR PRN PRN Reason: Nausea And Vomiting Last Admin: 04/20/24 06:18 Dose: 4 mg Ondansetron HCl (Ondansetron 4 Mg/2 Ml Vial) 4 mg IVP Q24HR PRN PRN Reason: Nausea And Vomiting Quetiapine Fumarate (Quetiapine 25 Mg Tab) 25 mg PO HS@1999 [facility] Last Admin: 04/19/24 22:18 Dose: Not Given Senna (Sennosides 8.6 Mg Tab) 17.2 mg PO DAILY PRN PRN Reason: Constipation Senna/Docusate Sodium (Sennosides-Docusate Sodium 1 Each Tab) 2 each PO HS [facility] Last Admin: 04/19/24 23:01 Dose: 2 each Tramadol HCl (Tramadol 50 Mg Tab) 50 mg PO QID PRN PRN Reason: Pain Social history: Lives at [facility] home. No history of smoking or alcohol reported. Physical examination: VITAL SIGNS: 101.9, 76, 16, 122 x 62, 97% room air GENERAL: BMI 20.2, laying bed awake sleepy EYES: Pupils equal. Conjunctiva dionisio l. HEENT: External appearance of nose and ears normal, oral cavity grossly normal. NECK: JVD not raised; masses not palpable. HEART: First and second heart sounds are normal; no edema. LUNGS: Respiratory rate normal; clear to auscultation. ABDOMEN: Soft, nontender, liver spleen not palpable, no masses palpable. PSYCH: Lethargic MUSCULOSKELETAL:No Clubbing/cyanosis;muscles-grossly intact. OA. Right lower extremity immobilizer INVESTIGATIONS, reviewed in the clinical context: UA: Positive for leukoesterase, WBC April 18, 2024: White count 7 hemoglobin 10.7 platelets 184 sodium 139 potassium 4.2. 34 creatinine 0.96 UA: Protein 1+ trace leukoesterase EKG tracing personally reviewed by me-normal sinus rhythm. PVC. Nonspecific ST-T wave changes. Chest x-ray film personally reviewed by me-slight unfolding of the aorta. Possibly some chronic changes. Right femur x-ray: Distal femoral diaphysis fracture with displacement and medial angulation. No periprosthetic fracture. Assessment plan: -: Distal femoral diaphysis fracture with displacement and medial angulation. Open reduction internal fixation-Dr. Hanna April 19 Nonweightbearing -Episode of fever. Only 1 reading. Could be reactive. Hold off antibiotics for now. Follow clinically. -Severe cognitive impairment from late onset Alzheimer's dementia -Essential hypertension Tenormin 25 mg a day -Hyperlipidemia Crestor 20 mg nightly -Chronic insomnia from medical issues Melatonin -It is unclear for what reason patient is on Eliquis -Full code Perioperative cardiovascular risk assessment: Patient is of advanced age. Somewhat frail. Has no active cardiac symptoms. She is a high risk for perioperative complications. But has no absolute complication to proceed with surgery. Currently no family member around. 1 episode of fever. Follow clinically. If no fever or change in clinical status we will then add antibiotics Thank you Dr. Hanna Past Medical History Past Medical History: Cancer, CVA/TIA, Hyperlipidemia, Hypertension, Osteoarthritis (OA) Additional Past Medical History / Comment(s): hx TIA - some memory loss, hx colon cancer, "heart valve leakage", has episode of waking up with balance problem, did not know where she was and was SOB with chest discomfort, hx gout, History of Any Multi-Drug Resistant Organisms: None Reported Past Surgical History: Bowel Resection, Hernia Repair, Joint Replacement Additional Past Surgical History / Comment(s): lt knee replacement, Past Anesthesia/Blood Transfusion Reactions: No Reported Reaction Past Psychological History: No Psychological Hx Reported Smoking Status: Never smoker
[2024-04-20] MEDS: hydrOXYzine pamoate 25 MG CAP PO PRN (17:23)
[2024-04-21 05:23] LABS: Anisocytosis Slight; Basophils % (A) 0 %; Eosinophils % (A) 0 %; Lymphocytes # (A) 0.7 k/uL (1.0-4.8); Lymphocytes % (A) 9 %; MCHC 32.4 g/dL (31.0-37.0); MCV 86.2 fL (80.0-100.0); Mean Platelet Volume 9.3; Monocytes # (A) 0.5 k/uL (0-1.0); Monocytes % (A) 7 %; Neutrophils # (A) 6.1 k/uL (1.3-7.7); Neutrophils % (A) 82 %; Platelet Count 111 k/uL (150-450); RBC 2.22 m/uL (3.80-5.40); RDW 16.2 % (11.5-15.5); WBC 7.4 k/uL (3.8-10.6)
[2024-04-21 05:40] LABS: HCT 19.1 % (34.0-46.0); HGB 6.2 gm/dL (11.4-16.0)
--- NOTE | 2024-04-21 07:51 | P.PN ---
Subjective Patient is sleeping in bed. No apparent distress. Objective - Vital Signs Vital signs: Vital Signs Temp 98.6 F 04/21/24 06:57 Pulse 69 04/21/24 06:57 Resp 17 04/21/24 06:57 BP 119/61 04/21/24 06:57 Pulse Ox 98 04/21/24 06:57 FiO2 Intake & Output 04/20/24 04/21/24 04/21/24 18:59 06:59 18:59 Output Total 550 500 Balance -550 -500 Output: Urine 550 500 Other: Voiding Method Indwelling Catheter Indwelling Catheter - Exam Patient is asleep but wakes up upon stimuli. She can answer questions but is rather sleepy. On inspection of the right leg her knee immobilizer is in place. She is moving her toes up and down. - Labs CBC & Chem 7: 04/21/24 05:05 04/18/24 16:02 Labs: Abnormal Lab Results - Last 24 Hours (Table) 04/21/24 04/21/24 Range/Units 05:05 05:40 RBC 2.22 L (3.80-5.40) m/uL Hgb 6.2 L* D (11.4-16.0) gm/dL Hct 19.1 L* (34.0-46.0) % RDW 16.2 H (11.5-15.5) % Plt Count 111 L (150-450) k/uL Lymphocytes # 0.7 L (1.0-4.8) k/uL Crossmatch See Detail Assessment and Plan Assessment: Postoperative day #2 status post open reduction internal fixation of right inter prosthetic femur fracture Alzheimer's dementia Plan: The knee treatment as outlined previously. The patient should remain nonweightbearing on her operative extremity. The knee immobilizer can be removed when she is up in a chair. DVT prophylaxis - okay to resume Eliquis. Discharge planning.
[2024-04-21] MEDS: traMADol 50 MG TAB PO PRN (08:28)
--- NOTE | 2024-04-21 16:51 | P.PN ---
Progress Note - Text Progress Note Date: 04/21/24 - Chief Complaint Fall - History of Present Illness This is a pleasantly confused 83-year-old patient, follows with visiting physician Dr. Raines. Chronic stable medical conditions include hyperlipidemia, hypertension, osteoarthritis, severe cognitive impairment, history of colon cancer gout bowel resection. Patient herself not able to give any significant history. She arrived to the ER via EMS from [facility] home. She was trying on slippers with her daughter lost her balance and she was lowered to the ground. Complaint of right mid thigh pain. Fracture was confirmed. She has had bilateral hip surgeries in the past by Dr. Hanna. And a right total knee replacement by Dr. Rios. Patient did not have any head injury or loss of consciousness. April 19: Patient was seen by me this morning before surgery. Laying in bed. Comfortable. Denies any significant pain. Going down for surgery later today. April 20: Patient had open reduction internal fixation of the femur yesterday. Rather sleepy today. Family at the bedside. Has not eaten this morning. Getting IV fluids. Did spike a fever of 101.9 this afternoon. April 21: Laying in bed. Comfortable. Did drop hemoglobin. To 6.2. Unit of blood ordered. Note patient's EBL was 300 cc. Discussed at length with patient daughter at the bedside. Questions answered. Repeat hemoglobin. No further fever. Otherwise patient appears comfortable. Active Medications Acetaminophen (Acetaminophen Tab 325 Mg Tab) 650 mg PO Q6HR PRN PRN Reason: Mild Pain or Fever > 100.5 Last Admin: 04/21/24 12:08 Dose: 650 mg Hydrocodone Bitart/Acetaminophen (Hydrocodone/Apap 5-325mg 1 Each Tab) 1 each PO Q4HR PRN PRN Reason: Moderate Pain (Scale 4 to 6) Last Admin: 04/20/24 06:14 Dose: 1 each Hydrocodone Bitart/Acetaminophen (Hydrocodone/Apap 10-325mg 1 Each Tab) 1 each PO Q6H PRN PRN Reason: Pain Scale 7 to 10 Alprazolam (Alprazolam 0.5 Mg Tab) 0.5 mg PO HS PRN PRN Reason: ANXIETY/INSOMNIA Atenolol (Atenolol 25 Mg Tab) 25 mg PO BID [facility] Last Admin: 04/21/24 08:28 Dose: 25 mg Atorvastatin Calcium (Atorvastatin 40 Mg Tab) 40 mg PO HS [facility] Last Admin: 04/20/24 21:40 Dose: 40 mg Cyanocobalamin (Cyanocobalamin 500 Mcg Tab) 1,000 mcg PO DAILY@0800 COUNTS INCLUDE 234 BEDS AT THE [facility] Last Admin: 04/21/24 08:25 Dose: Not Given Enoxaparin Sodium (Enoxaparin 40 Mg/0.4 Ml Syringe) 40 mg SQ DAILY COUNTS INCLUDE 234 BEDS AT THE [facility] Last Admin: 04/21/24 08:28 Dose: 40 mg Ferrous Sulfate (Ferrous Sulfate 325 Mg Tab) 325 mg PO DAILY COUNTS INCLUDE 234 BEDS AT THE [facility] Last Admin: 04/21/24 08:28 Dose: 325 mg Hydromorphone HCl (Hydromorphone 0.5 Mg/0.5 Ml Syringe) 0.125 mg IVP Q3HR PRN PRN Reason: Pain Scale 1 to 3 Hydromorphone HCl (Hydromorphone 0.5 Mg/0.5 Ml Syringe) 0.25 mg IVP Q3HR PRN PRN Reason: Pain Scale 4 to 6 Hydromorphone HCl (Hydromorphone 0.5 Mg/0.5 Ml Syringe) 0.5 mg IVP Q3HR PRN PRN Reason: Pain Scale 7 to 10 Hydroxyzine Pamoate (Hydroxyzine Pamoate 25 Mg Cap) 25 mg PO Q4HR PRN PRN Reason: Mild Nausea and/or Anxiety Last Admin: 04/20/24 17:23 Dose: 25 mg Sodium Chloride (Saline 0.9%) 1,000 mls @ 100 mls/hr IV .Q10H COUNTS INCLUDE 234 BEDS AT THE [facility] Last Admin: 04/21/24 13:12 Dose: Not Given Magnesium Hydroxide (Magnesium Hydroxide 2,400 Mg/30 Ml Cup) 2,400 mg PO DAILY PRN PRN Reason: Constipation Melatonin (Melatonin 5 Mg Tablet) 5 mg PO HS@1999 COUNTS INCLUDE 234 BEDS AT THE [facility] Last Admin: 04/20/24 21:40 Dose: 5 mg Multivitamins/Minerals (Vit A,C & T-Qkkuah-Xjivgpqg 1 Each Tab) 1 each PO DAILY@0800 COUNTS INCLUDE 234 BEDS AT THE [facility] Last Admin: 04/21/24 08:26 Dose: Not Given Naloxone HCl (Naloxone 0.4 Mg/Ml 1 Ml Vial) 0.2 mg IV Q2M PRN PRN Reason: Opioid Reversal Non-Formulary Medication (Methenamine Hippurate [Hiprex]) 1 gm PO BID@799,1999 COUNTS INCLUDE 234 BEDS AT THE [facility] Last Admin: 04/21/24 08:28 Dose: Not Given Ondansetron HCl (Ondansetron 4 Mg/2 Ml Vial) 4 mg IVP Q8HR PRN PRN Reason: Nausea And Vomiting Last Admin: 04/20/24 21:01 Dose: 4 mg Ondansetron HCl (Ondansetron 4 Mg/2 Ml Vial) 4 mg IVP Q24HR PRN PRN Reason: Nausea And Vomiting Quetiapine Fumarate (Quetiapine 25 Mg Tab) 25 mg PO HS@1999 COUNTS INCLUDE 234 BEDS AT THE [facility] Last Admin: 04/20/24 22:05 Dose: Not Given Senna (Sennosides 8.6 Mg Tab) 17.2 mg PO DAILY PRN PRN Reason: Constipation Senna/Docusate Sodium (Sennosides-Docusate Sodium 1 Each Tab) 2 each PO HS COUNTS INCLUDE 234 BEDS AT THE [facility] Last Admin: 04/20/24 21:40 Dose: 2 each Tramadol HCl (Tramadol 50 Mg Tab) 50 mg PO QID PRN PRN Reason: Pain Last Admin: 04/21/24 08:28 Dose: 50 mg Social history: Lives at [facility] home. No history of smoking or alcohol reported. Physical examination: VITAL SIGNS: 99.8, 70, 17, 91 x 50, 95% room air GENERAL: In bed, propped up, comfortable EYES: Pupils equal. Conjunctiva dionisio l. HEENT: External appearance of nose and ears normal, oral cavity grossly normal. NECK: JVD not raised; masses not palpable. HEART: First and second heart sounds are normal; no edema. LUNGS: Respiratory rate normal; clear to auscultation. ABDOMEN: Soft, nontender, liver spleen not palpable, no masses palpable. PSYCH: Lethargic MUSCULOSKELETAL:No Clubbing/cyanosis;muscles-grossly intact. OA. Right lower extremity immobilizer INVESTIGATIONS, reviewed in the clinical context: April 21: White count 7.4 hemoglobin 6.2 platelets 111 UA: Positive for leukoesterase, WBC April 18, 2024: White count 7 hemoglobin 10.7 platelets 184 sodium 139 potassium 4.2. 34 creatinine 0.96 UA: Protein 1+ trace leukoesterase EKG tracing personally reviewed by me-normal sinus rhythm. PVC. Nonspecific ST-T wave changes. Chest x-ray film personally reviewed by me-slight unfolding of the aorta. Possibly some chronic changes. Right femur x-ray: Distal femoral diaphysis fracture with displacement and medial angulation. No periprosthetic fracture. Assessment plan: -: Distal femoral diaphysis fracture with displacement and medial angulation. Open reduction internal fixation-Dr. Hanna April 19 Nonweightbearing -Acute postprocedure plus anemia expected from surgery patient's EBL was 300 Transfuse 1 unit of blood today -Episode of fever. Only 1 reading. Could be reactive. Hold off antibiotics for now. Follow clinically. -Severe cognitive impairment from late onset Alzheimer's dementia -Essential hypertension Tenormin 25 mg a day -Hyperlipidemia Crestor 20 mg nightly -Chronic insomnia from medical issues Melatonin -It is unclear for what reason patient is on Eliquis -DNR-Per daughter Perioperative cardiovascular risk assessment: Patient is of advanced age. Somewhat frail. Has no active cardiac symptoms. She is a high risk for perioperative complications. But has no absolute complication to proceed with surgery. Currently no family member around. Continued blood given today. Repeat hemoglobin. Discussed with daughter at the bedside. Prognosis guarded. Thank you Dr. Hanna Past Medical History Past Medical History: Cancer, CVA/TIA, Hyperlipidemia, Hypertension, Osteoarthritis (OA) Additional Past Medical History / Comment(s): hx TIA - some memory loss, hx colon cancer, "heart valve leakage", has episode of waking up with balance problem, did not know where she was and was SOB with chest discomfort, hx gout, History of Any Multi-Drug Resistant Organisms: None Reported Past Surgical History: Bowel Resection, Hernia Repair, Joint Replacement Additional Past Surgical History / Comment(s): lt knee replacement, Past Anesthesia/Blood Transfusion Reactions: No Reported Reaction Past Psychological History: No Psychological Hx Reported Smoking Status: Never smoker
[2024-04-21 17:37] LABS: Anisocytosis Slight; HCT 21.9 % (34.0-46.0); HGB 7.3 gm/dL (11.4-16.0); MCH 28.7 pg (25.0-35.0); MCHC 33.4 g/dL (31.0-37.0); Mean Platelet Volume 9.5; Platelet Count 108 k/uL (150-450); RBC 2.55 m/uL (3.80-5.40); RDW 16.9 % (11.5-15.5); WBC 6.4 k/uL (3.8-10.6)
[2024-04-21 20:21] LABS: Anisocytosis Slight; Basophils % (A) 0 %; Eosinophils % (A) 0 %; HCT 22.2 % (34.0-46.0); HGB 7.3 gm/dL (11.4-16.0); Hypochromasia Slight; Lymphocytes # (A) 0.6 k/uL (1.0-4.8); Lymphocytes % (A) 11 %; MCH 28.4 pg (25.0-35.0); MCHC 32.7 g/dL (31.0-37.0); MCV 86.9 fL (80.0-100.0); Mean Platelet Volume 8.9; Monocytes # (A) 0.4 k/uL (0-1.0); Monocytes % (A) 7 %; Neutrophils # (A) 4.6 k/uL (1.3-7.7); Neutrophils % (A) 80 %; Platelet Count 113 k/uL (150-450); RBC 2.56 m/uL (3.80-5.40); RDW 16.6 % (11.5-15.5); WBC 5.7 k/uL (3.8-10.6)
--- NOTE | 2024-04-22 09:22 | P.PN ---
Subjective Patient is resting in bed. She is accompanied at bedside by her daughter. She had a low hemoglobin yesterday which required transfusion. The patient's daughter states that she thinks she is painful this morning. Objective - Vital Signs Vital signs: Vital Signs Temp 99.2 F 04/22/24 07:25 Pulse 74 04/22/24 07:25 Resp 16 04/22/24 07:25 BP 106/61 04/22/24 07:25 Pulse Ox 100 04/22/24 07:25 FiO2 Intake & Output 04/21/24 04/22/24 04/22/24 18:59 06:59 18:59 Intake Total 293 Output Total 300 200 Balance -7 -200 Intake: Blood Product 293 Rc Pheresis 2 As3 Unit 293 [id number] Output: Urine 300 200 Other: Voiding Method Indwelling Catheter Indwelling Catheter - Exam Patient is resting in bed. She is awake. Her right leg was inspected. Her mary alice ssing and knee immobilizer were placed. She is moving her foot and ankle up and down. - Labs CBC & Chem 7: 04/21/24 20:03 04/18/24 16:02 Labs: Abnormal Lab Results - Last 24 Hours (Table) 04/21/24 04/21/24 04/21/24 Range/Units 05:40 17:27 20:03 RBC 2.55 L 2.56 L (3.80-5.40) m/uL Hgb 7.3 L 7.3 L (11.4-16.0) gm/dL Hct 21.9 L 22.2 L (34.0-46.0) % RDW 16.9 H 16.6 H (11.5-15.5) % Plt Count 108 L 113 L (150-450) k/uL Lymphocytes # 0.6 L (1.0-4.8) k/uL Crossmatch See Detail Assessment and Plan Assessment: Operative day #3 status post open reduction internal fixation inter-prosthetic femur fracture Plan: Patient was transfused yesterday. I would like her continue to attempt to mobilize out of bed into a chair is able. Nonweightbearing right lower extremity. Is okay to remove the knee immobilizer for comfort. Her daughter is at bedside and has realistic expectations. she understands her prognosis is guarded. Discharge planning in progress.
[2024-04-22] MEDS ORDERED: ZINC OXIDE PASTE (Z-GUARD) 1 APPLIC TOPICAL PRN (10:06)
--- NOTE | 2024-04-22 20:30 | P.PN ---
Progress Note - Text Progress Note Date: 04/22/24 - Chief Complaint Fall - History of Present Illness This is a pleasantly confused 83-year-old patient, follows with visiting physician Dr. Raines. Chronic stable medical conditions include hyperlipidemia, hypertension, osteoarthritis, severe cognitive impairment, history of colon cancer gout bowel resection. Patient herself not able to give any significant history. She arrived to the ER via EMS from [facility] home. She was trying on slippers with her daughter lost her balance and she was lowered to the ground. Complaint of right mid thigh pain. Fracture was confirmed. She has had bilateral hip surgeries in the past by Dr. Hanna. And a right total knee replacement by Dr. Rios. Patient did not have any head injury or loss of consciousness. April 19: Patient was seen by me this morning before surgery. Laying in bed. Comfortable. Denies any significant pain. Going down for surgery later today. April 20: Patient had open reduction internal fixation of the femur yesterday. Rather sleepy today. Family at the bedside. Has not eaten this morning. Getting IV fluids. Did spike a fever of 101.9 this afternoon. April 21: Laying in bed. Comfortable. Did drop hemoglobin. To 6.2. Unit of blood ordered. Note patient's EBL was 300 cc. Discussed at length with patient daughter at the bedside. Questions answered. Repeat hemoglobin. No further fever. Otherwise patient appears comfortable. April 22: Spoke to nurse. Patient eating some. Appears to be comfortable. Right leg in a brace. Hemoglobin 7.3. Will be going to rehab. No family at the bedside. Active Medications Acetaminophen (Acetaminophen Tab 325 Mg Tab) 650 mg PO Q6HR PRN PRN Reason: Mild Pain or Fever > 100.5 Last Admin: 04/22/24 09:19 Dose: 650 mg Hydrocodone Bitart/Acetaminophen (Hydrocodone/Apap 5-325mg 1 Each Tab) 1 each PO Q4HR PRN PRN Reason: Moderate Pain (Scale 4 to 6) Last Admin: 04/22/24 10:04 Dose: 1 each Hydrocodone Bitart/Acetaminophen (Hydrocodone/Apap 10-325mg 1 Each Tab) 1 each PO Q6H PRN PRN Reason: Pain Scale 7 to 10 Alprazolam (Alprazolam 0.5 Mg Tab) 0.5 mg PO HS PRN PRN Reason: ANXIETY/INSOMNIA Atenolol (Atenolol 25 Mg Tab) 25 mg PO BID [facility] Last Admin: 04/22/24 07:50 Dose: 25 mg Atorvastatin Calcium (Atorvastatin 40 Mg Tab) 40 mg PO HS [facility] Last Admin: 04/21/24 19:49 Dose: 40 mg Cyanocobalamin (Cyanocobalamin 500 Mcg Tab) 1,000 mcg PO DAILY@0800 [facility] Last Admin: 04/22/24 07:50 Dose: 1,000 mcg Enoxaparin Sodium (Enoxaparin 40 Mg/0.4 Ml Syringe) 40 mg SQ DAILY [facility] Last Admin: 04/22/24 07:50 Dose: 40 mg Ferrous Sulfate (Ferrous Sulfate 325 Mg Tab) 325 mg PO DAILY [facility] Last Admin: 04/22/24 07:49 Dose: 325 mg Hydromorphone HCl (Hydromorphone 0.5 Mg/0.5 Ml Syringe) 0.125 mg IVP Q3HR PRN PRN Reason: Pain Scale 1 to 3 Hydromorphone HCl (Hydromorphone 0.5 Mg/0.5 Ml Syringe) 0.25 mg IVP Q3HR PRN PRN Reason: Pain Scale 4 to 6 Hydromorphone HCl (Hydromorphone 0.5 Mg/0.5 Ml Syringe) 0.5 mg IVP Q3HR PRN PRN Reason: Pain Scale 7 to 10 Hydroxyzine Pamoate (Hydroxyzine Pamoate 25 Mg Cap) 25 mg PO Q4HR PRN PRN Reason: Mild Nausea and/or Anxiety Last Admin: 04/20/24 17:23 Dose: 25 mg Sodium Chloride (Saline 0.9%) 1,000 mls @ 100 mls/hr IV .Q10H [facility] Last Admin: 04/22/24 17:37 Dose: Not Given Magnesium Hydroxide (Magnesium Hydroxide 2,400 Mg/30 Ml Cup) 2,400 mg PO DAILY PRN PRN Reason: Constipation Melatonin (Melatonin 5 Mg Tablet) 5 mg PO HS@2000 [facility] Last Admin: 04/21/24 19:48 Dose: 5 mg Multivitamins/Minerals (Vit A,C & Q-Ahjyxk-Detcyznq 1 Each Tab) 1 each PO DAILY@0800 [facility] Last Admin: 04/22/24 07:50 Dose: 1 each Naloxone HCl (Naloxone 0.4 Mg/Ml 1 Ml Vial) 0.2 mg IV Q2M PRN PRN Reason: Opioid Reversal Non-Formulary Medication (Methenamine Hippurate [Hiprex]) 1 gm PO BID@ [facility] Last Admin: 04/22/24 07:51 Dose: Not Given Ondansetron HCl (Ondansetron 4 Mg/2 Ml Vial) 4 mg IVP Q8HR PRN PRN Reason: Nausea And Vomiting Last Admin: 04/20/24 21:01 Dose: 4 mg Ondansetron HCl (Ondansetron 4 Mg/2 Ml Vial) 4 mg IVP Q24HR PRN PRN Reason: Nausea And Vomiting Quetiapine Fumarate (Quetiapine 25 Mg Tab) 25 mg PO HS@1999 [facility] Last Admin: 04/21/24 19:49 Dose: 25 mg Senna (Sennosides 8.6 Mg Tab) 17.2 mg PO DAILY PRN PRN Reason: Constipation Senna/Docusate Sodium (Sennosides-Docusate Sodium 1 Each Tab) 2 each PO HS [facility] Last Admin: 04/21/24 19:49 Dose: 2 each Tramadol HCl (Tramadol 50 Mg Tab) 50 mg PO QID PRN PRN Reason: Pain Last Admin: 04/21/24 08:28 Dose: 50 mg Social history: Lives at [facility] home. No history of smoking or alcohol reported. Physical examination: VITAL SIGNS: 98.7, 66, 17, 91/41, 96% room air GENERAL: In bed, not in distress EYES: Pupils equal. Conjunctiva dionisio l. HEENT: External appearance of nose and ears normal, oral cavity grossly normal. NECK: JVD not raised; masses not palpable. HEART: First and second heart sounds are normal; no edema. LUNGS: Respiratory rate normal; clear to auscultation. ABDOMEN: Soft, nontender, liver spleen not palpable, no masses palpable. PSYCH: Lethargic MUSCULOSKELETAL:No Clubbing/cyanosis;muscles-grossly intact. OA. Right lower extremity immobilizer INVESTIGATIONS, reviewed in the clinical context: April 21: White count 7.4 hemoglobin 6.2 platelets 111 UA: Positive for leukoesterase, WBC April 18, 2024: White count 7 hemoglobin 10.7 platelets 184 sodium 139 potassium 4.2. 34 creatinine 0.96 UA: Protein 1+ trace leukoesterase EKG tracing personally reviewed by me-normal sinus rhythm. PVC. Nonspecific ST-T wave changes. Chest x-ray film personally reviewed by me-slight unfolding of the aorta. Possibly some chronic changes. Right femur x-ray: Distal femoral diaphysis fracture with displacement and medial angulation. No periprosthetic fracture. Assessment plan: -: Distal femoral diaphysis fracture with displacement and medial angulation. Open reduction internal fixation-Dr. Hanna April 19 Nonweightbearing -Acute postprocedure plus anemia expected from surgery patient's EBL was 300 Received 1 unit of blood -Severe cognitive impairment from late onset Alzheimer's dementia -Essential hypertension Tenormin 25 mg a day -Mild thrombocytopenia -Hyperlipidemia Crestor 20 mg nightly -Chronic insomnia from medical issues Melatonin -It is unclear for what reason patient is on Eliquis -DNR-Per daughter Perioperative cardiovascular risk assessment: Patient is of advanced age. Somewhat frail. Has no active cardiac symptoms. She is a high risk for perioperative complications. But has no absolute complication to proceed with surgery. Currently no family member around. Continue supportive care. Feeding to be encouraged. Will be going to rehab. Thank you Dr. Hanna Past Medical History Past Medical History: Cancer, CVA/TIA, Hyperlipidemia, Hypertension, Osteoarthritis (OA) Additional Past Medical History / Comment(s): hx TIA - some memory loss, hx c olon cancer, "heart valve leakage", has episode of waking up with balance problem, did not know where she was and was SOB with chest discomfort, hx gout, History of Any Multi-Drug Resistant Organisms: None Reported Past Surgical History: Bowel Resection, Hernia Repair, Joint Replacement Additional Past Surgical History / Comment(s): lt knee replacement, Past Anesthesia/Blood Transfusion Reactions: No Reported Reaction Past Psychological History: No Psychological Hx Reported Smoking Status: Never smoker
--- NOTE | 2024-04-23 08:02 | P.PN ---
Subjective Progress Note Date: 04/23/24 Principal diagnosis: 1. Right inter-prosthetic femur fracture s/p Open reduction and internal fixation right Patient is postop day 4. Had transfusion over the weekend. Patient states she continues to have pain with moving her right leg. Objective - Vital Signs Vital signs: Vital Signs Temp 98.4 F 04/23/24 07:04 Pulse 65 04/23/24 07:04 Resp 17 04/23/24 07:04 BP 109/60 04/23/24 07:04 Pulse Ox 97 04/23/24 07:04 FiO2 Intake & Output 04/22/24 04/23/24 04/23/24 18:59 06:59 18:59 Output Total 700 800 Balance -700 -800 Output: Urine 700 800 Other: Voiding Method Indwelling Catheter Indwelling Catheter # Voids 200 - Exam Patient was examined at bedside. Patient was awake alert, but is not oriented due to Alzheimer's dementia. On exam there is a right knee immobilizer in place. Patient's toes are visualized and are pink, with capillary refill under 2 seconds. Patient's right femoral nerve function is grossly intact. Patient is able to plantarflex and dorsiflex the right ankle and toes. Right knee immobilizer removed. Himanshu bandage and web roll removed. Reinforced surgical dressing. Patient can remain out of knee immobilizer for comfort in bed. - Labs CBC & Chem 7: 04/21/24 20:03 04/18/24 16:02 Assessment and Plan Assessment: Postop day #4 1. Right interprosthetic femur fracture status post Open reduction and internal fixation right interprosthetic femur fracture 2. Prior bilateral hip fractures 3. Alzheimer's dementia Plan: Nonweightbearing of right lower extremity. May remove knee immobilizer while patient in bed or chair for comfort. Continue to manage pain. Appreciate medicine for medical management. Dispo: Anticipate needing senior living facility.
[2024-04-23 13:25] LABS: Anisocytosis Slight; HCT 24.8 % (34.0-46.0); HGB 7.6 gm/dL (11.4-16.0); Hypochromasia Marked; MCH 27.6 pg (25.0-35.0); MCHC 30.8 g/dL (31.0-37.0); MCV 89.7 fL (80.0-100.0); Mean Platelet Volume 8.5; Platelet Count 167 k/uL (150-450); RBC 2.77 m/uL (3.80-5.40); RDW 16.1 % (11.5-15.5); WBC 4.4 k/uL (3.8-10.6)
--- NOTE | 2024-04-23 16:10 | P.PN ---
Progress Note - Text Progress Note Date: 04/23/24 - Chief Complaint Fall - History of Present Illness This is a pleasantly confused 83-year-old patient, follows with visiting physician Dr. Raines. Chronic stable medical conditions include hyperlipidemia, hypertension, osteoarthritis, severe cognitive impairment, history of colon cancer gout bowel resection. Patient herself not able to give any significant history. She arrived to the ER via EMS from [facility] home. She was trying on slippers with her daughter lost her balance and she was lowered to the ground. Complaint of right mid thigh pain. Fracture was confirmed. She has had bilateral hip surgeries in the past by Dr. Hanna. And a right total knee replacement by Dr. Rios. Patient did not have any head injury or loss of consciousness. April 19: Patient was seen by me this morning before surgery. Laying in bed. Comfortable. Denies any significant pain. Going down for surgery later today. April 20: Patient had open reduction internal fixation of the femur yesterday. Rather sleepy today. Family at the bedside. Has not eaten this morning. Getting IV fluids. Did spike a fever of 101.9 this afternoon. April 21: Laying in bed. Comfortable. Did drop hemoglobin. To 6.2. Unit of blood ordered. Note patient's EBL was 300 cc. Discussed at length with patient daughter at the bedside. Questions answered. Repeat hemoglobin. No further fever. Otherwise patient appears comfortable. April 22: Spoke to nurse. Patient eating some. Appears to be comfortable. Right leg in a brace. Hemoglobin 7.3. Will be going to rehab. No family at the bedside. April 23: Sitting up in recliner. Family at the bedside including daughter. And her son. Patient states she has no pain. Has been eating some. Otherwise appears comfortable. Apparently per social workers note receiving facilities will not receive the patient without a hemoglobin above 8. As patient is hemodynamically stable for the blood transfusion is not recommended. Will change atenolol to Lopressor 12.5 twice daily. Discussed with daughter at bedside. Risk-benefit of Eliquis discussed. Will resume Eliquis on April 30 if everything is the same. Active Medications Acetaminophen (Acetaminophen Tab 325 Mg Tab) 650 mg PO Q6HR PRN PRN Reason: Mild Pain or Fever > 100.5 Last Admin: 04/23/24 05:33 Dose: 650 mg Hydrocodone Bitart/Acetaminophen (Hydrocodone/Apap 5-325mg 1 Each Tab) 1 each PO Q4HR PRN PRN Reason: Moderate Pain (Scale 4 to 6) Last Admin: 04/23/24 10:19 Dose: 1 each Hydrocodone Bitart/Acetaminophen (Hydrocodone/Apap 10-325mg 1 Each Tab) 1 each PO Q6H PRN PRN Reason: Pain Scale 7 to 10 Alprazolam (Alprazolam 0.5 Mg Tab) 0.5 mg PO HS PRN PRN Reason: ANXIETY/INSOMNIA Atorvastatin Calcium (Atorvastatin 40 Mg Tab) 40 mg PO HS [facility] Last Admin: 04/22/24 21:45 Dose: 40 mg Cyanocobalamin (Cyanocobalamin 500 Mcg Tab) 1,000 mcg PO DAILY@0800 [facility] Last Admin: 04/23/24 07:22 Dose: 1,000 mcg Enoxaparin Sodium (Enoxaparin 40 Mg/0.4 Ml Syringe) 40 mg SQ DAILY [facility] Last Admin: 04/23/24 07:22 Dose: 40 mg Ferrous Sulfate (Ferrous Sulfate 325 Mg Tab) 325 mg PO DAILY [facility] Last Admin: 04/23/24 07:22 Dose: 325 mg Hydromorphone HCl (Hydromorphone 0.5 Mg/0.5 Ml Syringe) 0.125 mg IVP Q3HR PRN PRN Reason: Pain Scale 1 to 3 Hydromorphone HCl (Hydromorphone 0.5 Mg/0.5 Ml Syringe) 0.25 mg IVP Q3HR PRN PRN Reason: Pain Scale 4 to 6 Hydromorphone HCl (Hydromorphone 0.5 Mg/0.5 Ml Syringe) 0.5 mg IVP Q3HR PRN PRN Reason: Pain Scale 7 to 10 Hydroxyzine Pamoate (Hydroxyzine Pamoate 25 Mg Cap) 25 mg PO Q4HR PRN PRN Reason: Mild Nausea and/or Anxiety Last Admin: 04/20/24 17:23 Dose: 25 mg Sodium Chloride (Saline 0.9%) 1,000 mls @ 100 mls/hr IV .Q10H [facility] Last Admin: 04/23/24 14:43 Dose: Not Given Ferric Sodium Gluconate 125 mg (/ Sodium Chloride) 110 mls @ 100 mls/hr IVPB DAILY [facility] Stop: 10/08/24 10:05 Magnesium Hydroxide (Magnesium Hydroxide 2,400 Mg/30 Ml Cup) 2,400 mg PO DAILY PRN PRN Reason: Constipation Melatonin (Melatonin 5 Mg Tablet) 5 mg PO HS@1999 [facility] Last Admin: 04/22/24 21:45 Dose: 5 mg Metoprolol Tartrate (Metoprolol Tartrate 12.5 Mg Tab) 12.5 mg PO BID [facility] Multivitamins/Minerals (Vit A,C & T-Wmrsky-Kwfzovrw 1 Each Tab) 1 each PO DAILY@08 [facility] Last Admin: 04/23/24 07:22 Dose: 1 each Naloxone HCl (Naloxone 0.4 Mg/Ml 1 Ml Vial) 0.2 mg IV Q2M PRN PRN Reason: Opioid Reversal Non-Formulary Medication (Methenamine Hippurate [Hiprex]) 1 gm PO BID@ [facility] Last Admin: 04/23/24 07:25 Dose: Not Given Ondansetron HCl (Ondansetron 4 Mg/2 Ml Vial) 4 mg IVP Q8HR PRN PRN Reason: Nausea And Vomiting Last Admin: 04/20/24 21:01 Dose: 4 mg Ondansetron HCl (Ondansetron 4 Mg/2 Ml Vial) 4 mg IVP Q24HR PRN PRN Reason: Nausea And Vomiting Quetiapine Fumarate (Quetiapine 25 Mg Tab) 25 mg PO HS@1999 [facility] Last Admin: 04/22/24 21:45 Dose: 25 mg Senna (Sennosides 8.6 Mg Tab) 17.2 mg PO DAILY PRN PRN Reason: Constipation Senna/Docusate Sodium (Sennosides-Docusate Sodium 1 Each Tab) 2 each PO HS [facility] Last Admin: 04/22/24 21:45 Dose: 2 each Tramadol HCl (Tramadol 50 Mg Tab) 50 mg PO QID PRN PRN Reason: Pain Last Admin: 04/21/24 08:28 Dose: 50 mg Social history: Lives at [facility] home. No history of smoking or alcohol reported. Physical examination: VITAL SIGNS: 98.2, 74, 17, 106 x 60, 100% room air GENERAL: Up in a recliner, comfortable EYES: Pupils equal. Conjunctiva dionisio l. HEENT: External appearance of nose and ears normal, oral cavity grossly normal. NECK: JVD not raised; masses not palpable. HEART: First and second heart sounds are normal; no edema. LUNGS: Respiratory rate normal; clear to auscultation. ABDOMEN: Soft, nontender, liver spleen not palpable, no masses palpable. PSYCH: Able to answer occasional simple questions. MUSCULOSKELETAL:No Clubbing/cyanosis;muscles-grossly intact. OA. Right lower extremity immobilizer INVESTIGATIONS, reviewed in the clinical context: April 23: White count 4.4 hemoglobin 7.6 platelets 167 April 21: White count 7.4 hemoglobin 6.2 platelets 111 UA: Positive for leukoesterase, WBC April 18, 2024: White count 7 hemoglobin 10.7 platelets 184 sodium 139 potassium 4.2. 34 creatinine 0.96 UA: Protein 1+ trace leukoesterase EKG tracing personally reviewed by me-normal sinus rhythm. PVC. Nonspecific ST-T wave changes. Chest x-ray film personally reviewed by me-slight unfolding of the aorta. Possibly some chronic changes. Right femur x-ray: Distal femoral diaphysis fracture with displacement and medial angulation. No periprosthetic fracture. Assessment plan: -: Distal femoral diaphysis fracture with displacement and medial angulation. Open reduction internal fixation-Dr. Hanna April 19 Nonweightbearing -Acute postprocedure plus anemia expected from surgery patient's EBL was 300 Received 1 unit of blood Will give IV Ferrlecit x 2 doses -Severe cognitive impairment from late onset Alzheimer's dementia -Essential hypertension Stop Tenormin. Changed to Lopressor 12.5 twice daily. -Eliquis: Continue to hold. Resume on April 30 if hemoglobin hemodynamically remained stable. -Mild thrombocytopenia -Hyperlipidemia Crestor 20 mg nightly -Chronic insomnia from medical issues Melatonin -It is unclear for what reason patient is on Eliquis -DNR-Per daughter Perioperative cardiovascular risk assessment: Patient is of advanced age. Somewhat frail. Has no active cardiac symptoms. She is a high risk for perioperative complications. But has no absolute complication to proceed with surgery. Currently no family member around. Give IV iron. Spoke with daughter and the family at the bedside. Continue other medications. Thank you Dr. Hanna Past Medical History Past Medical History: Cancer, CVA/TIA, Hyperlipidemia, Hypertension, Osteoarthritis (OA) Additional Past Medical History / Comment(s): hx TIA - some memory loss, hx colon cancer, "heart valve leakage", has episode of waking up with balance problem, did not know where she was and was SOB with chest discomfort, hx gout, History of Any Multi-Drug Resistant Organisms: None Reported Past Surgical History: Bowel Resection, Hernia Repair, Joint Replacement Additional Past Surgical History / Comment(s): lt knee replacement, Past Anesthesia/Blood Transfusion Reactions: No Reported Reaction Past Psychological History: No Psychological Hx Reported Smoking Status: Never smoker
[2024-04-23] MEDS: SODIUM FERRIC GLUCONAT-SUCROSE 125 MG in SODIUM CHLORIDE 0.9% 100 ML IVPB SCH (19:07)
[2024-04-23] MEDS: METOPROLOL TARTRATE 12.5 MG TAB PO SCH (21:55)
[2024-04-24] MEDS: ALPRAZolam 0.5 MG TAB PO PRN (03:53)
[2024-04-24] MEDS: HYDROmorphone 0.5 MG/0.5 ML SYRINGE IVP PRN (03:53)
--- NOTE | 2024-04-24 08:05 | P.PN ---
Subjective Progress Note Date: 04/24/24 Principal diagnosis: 1. Right inter-prosthetic femur fracture s/p Open reduction and internal fixation right Patient is postop day 5. Had transfusion over the weekend. Patient states she continues to have pain with moving her right leg. Had some urinary retention overnight. Discussed with nursing staff. Objective - Vital Signs Vital signs: Vital Signs Temp 99.6 F 04/24/24 02:11 Pulse 90 04/24/24 02:11 Resp 17 04/23/24 14:23 BP 149/96 04/24/24 02:11 Pulse Ox 95 04/24/24 02:11 FiO2 Intake & Output 04/23/24 04/24/24 04/24/24 18:59 06:59 18:59 Output Total 200 Balance -200 Output: Urine 200 Other: Voiding Method External Catheter External Catheter # Bowel Movements 1 - Exam Patient was examined at bedside. Patient was resting comfortably this morning. On exam patient is resting in chair. The surgical dressing is clean, dry, intact without strikethrough. Patient's foot and toes are well perfused with capillary refill under 2 seconds. - Labs CBC & Chem 7: 04/23/24 13:12 04/18/24 16:02 Labs: Abnormal Lab Results - Last 24 Hours (Table) 04/23/24 Range/Units 13:12 RBC 2.77 L (3.80-5.40) m/uL Hgb 7.6 L (11.4-16.0) gm/dL Hct 24.8 L (34.0-46.0) % MCHC 30.8 L (31.0-37.0) g/dL RDW 16.1 H (11.5-15.5) % Assessment and Plan Assessment: Postop day #5 1. Right interprosthetic femur fracture status post Open reduction and internal fixation 2. Prior bilateral hip fractures 3. Alzheimer's dementia Plan: Nonweightbearing of right lower extremity. May remove knee immobilizer while patient in bed or chair for comfort. Continue to manage pain. Appreciate medicine for medical management. No further orthopedic surgical interventions are planned. Patient is cleared for discharge from an orthopedic standpoint today. Patient's low hemoglobin has been keeping them from being transferred to a correction facility. If patient's hospital stay needs to be continued for medical management we can transfer to medical service in 1 to 2 days. Patient will need to follow up in our outpatient office 2-3 weeks post up to remove surgical tommy.
--- NOTE | 2024-04-24 11:51 | P.DS ---
Providers Date of admission: 04/18/24 17:02 Attending physician: Nixon Hanna Consults: 04/18/24 15:35 Consult Physician Urgent Consulting Provider: Alexis Thornton Consult Reason/Comments: Medical management, surgical clearance Do you want consulting provider notified?: Yes Primary care physician: Wilfrido Raines - Discharge Diagnosis(es) (1) Right femoral fracture Current Visit: Yes Status: Acute Hospital Course: Patient is a pleasantly confused 83 year old female with PMH of Alzheimer's dementia. Patient had a ground-level fall and was brought to the ER by ambulance and was diagnosed with a Right interprosthetic femur fracture. On 04/19/2024 patient had Open reduction and internal fixation Right interprosthetic femur fracture. Peridot were used for skin closure. Patient tolerated the procedure well. Patient transferred to the orthopedic. During her postop recovery had low blood received a blood transfusion. Patient had some urinary retention and was treated with urinary catheter. Patient has continued to be alert, but is not oriented to person, place, or time. Patient removed surgical bandage while confused and a new surgical bandage was placed. Patient has denied right leg pain while at rest, patient's had all the pain medication. Patient is nonweightbearing of the right lower extremity with right knee immobilizer. Knee immobilizer is able to be removed for comfort while patient is in bed or sitting in chair. Patient will have follow-up in our office to remove surgical skin tommy 2 to 3 weeks postop. Assessment: Right interprosthetic femur fracture status post open reduction and internal fixation on 04/19/2024 Alzheimer's dementia Patient Condition at Discharge: Fair Plan - Discharge Summary Discharge Rx Participant: No New Discharge Prescriptions: New Sennosides-Docusate Sodium [Senokot-S] 2 each PO HS tab Aspirin 81 mg PO BID #60 tab Ondansetron [Zofran] 4 mg PO Q6HR PRN #30 tab PRN Reason: Nausea Magnesium Hydroxide [Milk of Magnesia] 2,400 mg PO DAILY PRN ml PRN Reason: Constipation HYDROcodone/APAP 5-325MG [[place] 5] 1 - 2 each PO Q6HR PRN #56 tab PRN Reason: Pain Continue Mv-Mn/Om3/Dha/Epa/Fish/Lut/Phil [Ocuvite Adult 50 Plus Softgel] 1 cap PO DAILY@0800 QUEtiapine [SEROquel] 25 mg PO HS@1999 Cyanocobalamin (Vitamin B-12) [Vitamin B-12] 1,000 mcg PO DAILY@08 Ipratropium [place] 0.06%Nasal [Atrovent Nasal 0.06%] 2 spray EA NOSTRIL TID@0800,1399,1999 Rosuvastatin [Crestor] 20 mg PO HS@1999 Ferrous Sulfate [Iron (65 MG Elemental)] 325 mg PO DAILY@08 Methenamine Hippurate [Hiprex] 1 gm PO BID@799,1999 Melatonin 5 mg PO HS@1999 Acetaminophen [Tylenol] 650 mg PO Q4-6H PRN PRN Reason: Pain Discontinued atenoloL [Tenormin] 25 mg PO DAILY@08 Aspirin [Adult Low Dose Aspirin EC] 81 mg PO DAILY@08 ALPRAZolam [Xanax] 0.5 - 1 mg PO HS PRN PRN Reason: ANXIETY/INSOMNIA No Action Apixaban [Eliquis] 2.5 mg PO BID@799,1999 Discharge Medication List Rosuvastatin [Crestor] 20 mg PO HS@199903/16/22 [History] Ferrous Sulfate [Iron (65 MG Elemental)] 325 mg PO DAILY@0800 10/14/23 [History] Mv-Mn/Om3/Dha/Epa/Fish/Lut/Phil [Ocuvite Adult 50 Plus Softgel] 1 cap PO DAILY@0800 10/14/23 [History] Acetaminophen [Tylenol] 650 mg PO Q4-6H PRN 04/18/24 [History] Apixaban [Eliquis] 2.5 mg PO BID@799,199904/18/24 [History] Cyanocobalamin (Vitamin B-12) [Vitamin B-12] 1,000 mcg PO DAILY@0800 04/18/24 [History] Ipratropium [place] 0.06%Nasal [Atrovent Nasal 0.06%] 2 spray EA NOSTRIL TID@0800,1399,199904/18/24 [History] Melatonin 5 mg PO HS@199904/18/24 [History] Methenamine Hippurate [Hiprex] 1 gm PO BID@04/18/24 [History] QUEtiapine [SEROquel] 25 mg PO HS@199904/18/24 [History] Magnesium Hydroxide [Milk of Magnesia] 2,400 mg PO DAILY PRN ml 04/23/24 [Rx] Sennosides-Docusate Sodium [Senokot-S] 2 each PO HS tab 04/23/24 [Rx] Aspirin 81 mg PO BID #60 tab 04/24/24 [Rx] HYDROcodone/APAP 5-325MG [[place] 5] 1 - 2 each PO Q6HR PRN #56 tab 04/24/24 [Rx] Ondansetron [Zofran] 4 mg PO Q6HR PRN #30 tab 04/24/24 [Rx] Follow up Appointment(s)/Referral(s): [facility]idential [facility] [NON-STAFF] - As Needed Wilfrido Raines MD [Primary Care Provider] - 1-2 days Nixon Hanna MD [Medical Doctor] - 05/08/24 10:30 am Activity/Diet/Wound Care/Special Instructions: 1. Nvi-Vqiflt-eksspwd on right lower extremity. 2. Leave surgical dressing in place. If your dressing becomes saturated with blood, there is drainage, or the dressing becomes loose please contact the office. 3. It is okay to shower with your surgical dressing, but do not submerge in water (no hot tubs, bath's, swimming etc.) 4. Take your blood clot prevention medication as prescribed (aspirin, Eliquis, Xarelto, and Plavix are commonly prescribed medications for blood clot prevention) 5. While taking [place] or Percocet for pain take a stool softener (Ex: Colace) and drink lots of water. 6. Keep all follow-up appointments as scheduled. You will usually be seen in 1-2 weeks following surgery. 7. Please contact the office with any questions or concerns [phone] Return to [facility] Lilli kendrick on 04/30/24 Discharge Disposition: TRANSFER TO SNF/ECF
[2024-04-24 15:19] VITALS: BP 90/48; PULSE 78; RESP 19; TEMP 99.2
--- NOTE | 2024-04-24 22:30 | P.PN ---
Progress Note - Text Progress Note Date: 04/24/24 - Chief Complaint Fall - History of Present Illness This is a pleasantly confused 83-year-old patient, follows with visiting physician Dr. Raines. Chronic stable medical conditions include hyperlipidemia, hypertension, osteoarthritis, severe cognitive impairment, history of colon cancer gout bowel resection. Patient herself not able to give any significant history. She arrived to the ER via EMS from [facility] home. She was trying on slippers with her daughter lost her balance and she was lowered to the ground. Complaint of right mid thigh pain. Fracture was confirmed. She has had bilateral hip surgeries in the past by Dr. Hanna. And a right total knee replacement by Dr. Rios. Patient did not have any head injury or loss of consciousness. April 19: Patient was seen by me this morning before surgery. Laying in bed. Comfortable. Denies any significant pain. Going down for surgery later today. April 20: Patient had open reduction internal fixation of the femur yesterday. Rather sleepy today. Family at the bedside. Has not eaten this morning. Getting IV fluids. Did spike a fever of 101.9 this afternoon. April 21: Laying in bed. Comfortable. Did drop hemoglobin. To 6.2. Unit of blood ordered. Note patient's EBL was 300 cc. Discussed at length with patient daughter at the bedside. Questions answered. Repeat hemoglobin. No further fever. Otherwise patient appears comfortable. April 22: Spoke to nurse. Patient eating some. Appears to be comfortable. Right leg in a brace. Hemoglobin 7.3. Will be going to rehab. No family at the bedside. April 23: Sitting up in recliner. Family at the bedside including daughter. And her son. Patient states she has no pain. Has been eating some. Otherwise appears comfortable. Apparently per social workers note receiving facilities will not receive the patient without a hemoglobin above 8. As patient is hemodynamically stable for the blood transfusion is not recommended. Will change atenolol to Lopressor 12.5 twice daily. Discussed with daughter at bedside. Risk-benefit of Eliquis discussed. Will resume Eliquis on April 30 if everything is the same. eighth: Laying in bed. Comfortable. Spoke to son at the bedside patient will be going home. Questions answered. Social history: Lives at [facility] home. No history of smoking or alcohol reported. Physical examination: VITAL SIGNS: 99.2, 78, 19, 90/48, 95% room air GENERAL: Up in a recliner, comfortable EYES: Pupils equal. Conjunctiva dionisio l. HEENT: External appearance of nose and ears normal, oral cavity grossly normal. NECK: JVD not raised; masses not palpable. HEART: First and second heart sounds are normal; no edema. LUNGS: Respiratory rate normal; clear to auscultation. ABDOMEN: Soft, nontender, liver spleen not palpable, no masses palpable. PSYCH: Able to answer occasional simple questions. MUSCULOSKELETAL:No Clubbing/cyanosis;muscles-grossly intact. OA. Right lower extremity immobilizer INVESTIGATIONS, reviewed in the clinical context: April 23: White count 4.4 hemoglobin 7.6 platelets 167 April 21: White count 7.4 hemoglobin 6.2 platelets 111 UA: Positive for leukoesterase, WBC April 18, 2024: White count 7 hemoglobin 10.7 platelets 184 sodium 139 potassium 4.2. 34 creatinine 0.96 UA: Protein 1+ trace leukoesterase EKG tracing personally reviewed by me-normal sinus rhythm. PVC. Nonspecific ST-T wave changes. Chest x-ray film personally reviewed by me-slight unfolding of the aorta. Possibly some chronic changes. Right femur x-ray: Distal femoral diaphysis fracture with displacement and medial angulation. No periprosthetic fracture. Assessment plan: -: Distal femoral diaphysis fracture with displacement and medial angulation. Open reduction internal fixation-Dr. Hanna April 19 Nonweightbearing -Acute postprocedure plus anemia expected from surgery patient's EBL was 300 Received 1 unit of blood IV Ferrlecit x 2 doses -Severe cognitive impairment from late onset Alzheimer's dementia -Essential hypertension Stop Tenormin. Changed to Lopressor 12.5 twice daily. -Eliquis: Continue to hold. Resume on April 30 if hemoglobin hemodynamically remained stable. -Mild thrombocytopenia -Hyperlipidemia Crestor 20 mg nightly -Chronic insomnia from medical issues Melatonin -Eliquis to be resumed on 04/30/2024 -DNR-Per daughter Perioperative cardiovascular risk assessment: Patient is of advanced age. Somewhat frail. Has no active cardiac symptoms. She is a high risk for perioperative complications. But has no absolute complication to proceed with surgery. Currently no family member around. Disposition: [facility] home Thank you Dr. Braaksma Past Medical History Past Medical History: Cancer, CVA/TIA, Hyperlipidemia, Hypertension, O steoarthritis (OA) Additional Past Medical History / Comment(s): hx TIA - some memory loss, hx colon cancer, "heart valve leakage", has episode of waking up with balance prob karlos, did not know where she was and was SOB with chest discomfort, hx gout, History of Any Multi-Drug Resistant Organisms: None Reported Past Surgical History: Bowel Resection, Hernia Repair, Joint Replacement Additional Past Surgical History / Comment(s): lt knee replacement, Past Anesthesia/Blood Transfusion Reactions: No Reported Reaction Past Psychological History: No Psychological Hx Reported Smoking Status: Never smoker
== END 2024-04-24 18:38 | DRG 481 ==
LOC: EC 13:49 → 4SSUR 17:02
PROVIDERS: ADMIT Orthopaedic Surgery; ATTEND Orthopaedic Surgery
PROC: 0QPB04Z Removal of Internal Fixation Device from Right Lower Femur, Open Approach (ICD-10-PCS; 2024-04-19)
PROC: 0QSB04Z Reposition Right Lower Femur with Internal Fixation Device, Open Approach (ICD-10-PCS; principal; 2024-04-19 10:45)
PROC: 30233N1 Transfusion of Nonautologous Red Blood Cells into Peripheral Vein, Percutaneous Approach (ICD-10-PCS; 2024-04-21)
DX: S72.491A Other fracture of lower end of right femur, initial encounter for closed fracture (principal); D62 Acute posthemorrhagic anemia; F02.80 Dementia in other diseases classified elsewhere, unspecified severity, without behavioral disturbance, psychotic disturbance, mood disturbance, and anxiety; E78.5 Hyperlipidemia, unspecified; I10 Essential (primary) hypertension; G30.1 Alzheimer's disease with late onset; M19.90 Unspecified osteoarthritis, unspecified site; W01.0XXA Fall on same level from slipping, tripping and stumbling without subsequent striking against object, initial encounter; Y92.009 Unspecified place in unspecified non-institutional (private) residence as the place of occurrence of the external cause; Y99.8 Other external cause status; Z96.653 Presence of artificial knee joint, bilateral; Z85.038 Personal history of other malignant neoplasm of large intestine; Z86.73 Personal history of transient ischemic attack (TIA), and cerebral infarction without residual deficits; Z79.82 Long term (current) use of aspirin; Z79.01 Long term (current) use of anticoagulants; Z79.899 Other long term (current) drug therapy; Z80.0 Family history of malignant neoplasm of digestive organs
CPT/HCPCS: 36415; 71045; 72170; 80053; 81001; 85025; 85027; 85610; 85730; 86850; 86900; 86901; 86920; 93005; 96374; 99285